=== PATIENT | male | born 1965 | race Caucasian/White ===

== ENCOUNTER 2020-10-24 10:37 | Emergency (ER) | payer OTHER, MEDICAID, SELFPAY ==
[2020-10-24 10:45] VITALS: BP 131/77; PULSE 77; RESP 16; TEMP 36.7; O2SAT 99
[2020-10-24 11:17] LABS: Add Manual Diff / Slide Review NO; Basophils Absolute Auto 0 /uL (0-100); Eosinophils Absolute Auto 100 /uL (0-450); Eosinophils Percent Auto 2.2 % (2-4); Hematocrit 38.3 % (41-53); Hemoglobin 12.5 g/dL (13.5-17.5); Lymphocytes Absolute Auto 1400 /uL (1100-4500); Lymphocytes Percent Auto 34.8 % (25-40); Mean Corpuscular HGB Conc 32.7 % (30-36); Mean Corpuscular Hemoglobin 27.8 PG (26-34); Mean Corpuscular Volume 85.1 fL (80-100); Monocytes Absolute Auto 400 /uL (0-900); Monocytes Percent Auto 8.9 % (3-14); Neutrophils Absolute Auto 2100 /uL (1500-7000); Neutrophils Percent Auto 53.1 % (50-75); Platelet Count 236 X10^3/uL (150-400)
[2020-10-24 11:24] LABS: Alanine Aminotransferase 29 IU/L (<50); Albumin 2.6 g/dL (3.5-5.0); Albumin Globulin Ratio 0.8 (1.0-2.8); Alkaline Phosphatase 119 U/L (38-126); Aspartate Aminotransferase 69 IU/L (17-59); BUN Creatinine Ratio 13.6 (6-22); Bilirubin Total 0.5 mg/dL (0.2-1.3); Blood Urea Nitrogen 8 mg/dL (9-20); Calcium 8.1 mg/dL (8.4-10.2); Carbon Dioxide 24 mmol/L (22-32); Chloride 114 mmol/L (98-107); Estimated Glomerular Filt Rate > 60.0 mL/min (>60); Globulin 3.3 g/dL (1.7-4.1); Glucose 100 mg/dL (70-100); HEMOLYSIS < 15 (0-50); Potassium 3.5 mmol/L (3.4-5.1); Sodium 144 mmol/L (137-145); Total Protein 5.9 g/dL (6.3-8.2)
--- NOTE | 2020-10-24 11:26 | ED.PSYCH ---
HPI - Psych <Nyasia Orta MD - Last Filed: 10/25/20 18:33> General Chief Complaint: Psychiatric Symptoms Stated Complaint: NICHOLAS Time Seen by Provider: 10/24/20 10:43 Source: patient Mode of arrival: Ambulatory History of Present Illness HPI Narrative: 55-year-old gentleman brought in by police with concerns for unusual behavior. He is tangential, pressured, disoriented. He is unable to focus. States that he wants to see his daughter that he lives in [place] that he lives on [address] that he wants to go back to [place] and continues to [place] in nonsensical ways. He does not appear to be responding to internal or external stimuli. He is cooperative. He does state that ?his brain is broken? he alludes to medications that he takes twice a day that are currently in his hotel room but he is unable to tell me what they are. Will work on getting some additional contact numbers and corroborating evidence to see how else we might be able to help this gentleman. In the meantime he did allow blood work and we have asked him for urine sample. 1234 pm [facility] [place], Latifa ETOH, ? wernicke's encephalopathy, cirrhosis with ascites. [facility]compliance [facility], [facility] morris, 10ish hospital stays. D/c after [place] and meds taken Will talk with staff at [facility] to see what the process to get him back to there would entail At this time, he is gravely disabled and intoxicated. [facility] call from [facility] Related Data Allergies Allergy/AdvReac Type Severity Reaction Status Date / Time No Known Drug Allergies Allergy Verified 10/24/20 10:45 Review of Systems <Nyasia Orta MD - Last Filed: 10/25/20 18:33> Review of Systems ROS Unobtainable: Unobtainable due to mental status/LOC Exam <Nyasia Orta MD - Last Filed: 10/25/20 18:33> Initial Vital Signs Initial Vital Signs: Vital Signs Temperature 98.1 F 10/24/20 10:45 Pulse Rate 77 10/24/20 10:45 Respiratory Rate 16 10/24/20 10:45 Blood Pressure 131/77 10/24/20 10:45 Pulse Oximetry 99 10/24/20 10:45 <Nic Cope DO - Last Filed: 10/25/20 05:50> Initial Vital Signs Initial Vital Signs: Vital Signs Temperature 98.1 F 10/24/20 10:45 Pulse Rate 77 10/24/20 10:45 Respiratory Rate 16 10/24/20 10:45 Blood Pressure 131/77 10/24/20 10:45 Pulse Oximetry 99 10/24/20 10:45 Course <Nyasia Orta MD - Last Filed: 10/25/20 18:33> Orders Ordered: Discontinued Medications Diphenhydramine HCl (Diphenhydramine 50 Mg/Ml Vial) 50 mg IM NOW ONE Stop: 10/24/20 11:32 Last Admin: 10/24/20 11:44 Dose: 50 mg Documented by: TEMO Haloperidol (Haloperidol 5 Mg/Ml Vial) 10 mg IM NOW ONE Stop: 10/24/20 11:32 Last Admin: 10/24/20 11:44 Dose: 5 mg Documented by: TEMO Lorazepam (Lorazepam 2 Mg/Ml Inj) 2 mg IM NOW ONE Stop: 10/24/20 11:32 Last Admin: 10/24/20 11:44 Dose: 2 mg Documented by: TEMO Thiamine HCl (Thiamine 100 Mg Tablet) 100 mg PO NOW ONE Stop: 10/24/20 13:24 Last Admin: 10/24/20 14:50 Dose: 100 mg Documented by: TEMO Vital Signs Vital signs: Vital Signs - 8 hr 10/24/20 19:03 Temperature 98.6 F Pulse Rate 82 Respiratory Rate 17 Blood Pressure 149/74 H Pulse Oximetry 96 <Nic Cope DO - Last Filed: 10/25/20 05:50> Orders Ordered: Discontinued Medications Diphenhydramine HCl (Diphenhydramine 50 Mg/Ml Vial) 50 mg IM NOW ONE Stop: 10/24/20 11:32 Last Admin: 10/24/20 11:44 Dose: 50 mg Documented by: TEMO Haloperidol (Haloperidol 5 Mg/Ml Vial) 10 mg IM NOW ONE Stop: 10/24/20 11:32 Last Admin: 10/24/20 11:44 Dose: 5 mg Documented by: TEMO Lorazepam (Lorazepam 2 Mg/Ml Inj) 2 mg IM NOW ONE Stop: 10/24/20 11:32 Last Admin: 10/24/20 11:44 Dose: 2 mg Documented by: TEMO Thiamine HCl (Thiamine 100 Mg Tablet) 100 mg PO NOW ONE Stop: 10/24/20 13:24 Last Admin: 10/24/20 14:50 Dose: 100 mg Documented by: TEMO Vital Signs Vital signs: Vital Signs - 8 hr 10/24/20 19:03 Temperature 98.6 F Pulse Rate 82 Respiratory Rate 17 Blood Pressure 149/74 H Pulse Oximetry 96 MDM - Psych <Nyasia Orta MD - Last Filed: 10/25/20 18:33> Medical Records Attestation: I reviewed the patient's medical records. Lab Data Attestation: I reviewed the patient's lab results. Result diagrams: 10/24/20 11:04 10/24/20 11:04 Labs: Lab Results 10/24/20 10/24/20 10/24/20 Range/Units 11:04 11:04 11:04 WBC 4.0 L (4.5-11.0) X10^3/uL RBC 4.50 (4.5-5.9) X10^6/uL Hgb 12.5 L (13.5-17.5) g/dL Hct 38.3 L (41-53) % MCV 85.1 (80-100) fL MCH 27.8 (26-34) PG MCHC 32.7 (30-36) % RDW 20.0 H (11.6-14.8) % Plt Count 236 (150-400) X10^3/uL Neut % (Auto) 53.1 (50-75) % Lymph % (Auto) 34.8 (25-40) % [place] % (Auto) 8.9 (3-14) % Eos % (Auto) 2.2 (2-4) % Baso % (Auto) 1.0 (0-2) % Neut # (Auto) 2100 (1518-4749) /uL Lymph # (Auto) 1400 (3949-2240) /uL [place] # (Auto) 400 (0-900) /uL Eos # (Auto) 100 (0-450) /uL Baso # (Auto) 0 (0-100) /uL Sodium 144 (137-145) mmol/L Potassium 3.5 (3.4-5.1) mmol/L Chloride 114 H (98-107) mmol/L Carbon Dioxide 24 (22-32) mmol/L BUN 8 L (9-20) mg/dL Creatinine 0.59 L (0.66-1.25) mg/dL Estimated GFR > 60.0 (>60) mL/min BUN/Creatinine Ratio 13.6 (6-22) Glucose 100 (70-100) mg/dL Calcium 8.1 L (8.4-10.2) mg/dL Total Bilirubin 0.5 (0.2-1.3) mg/dL AST 69 H (17-59) IU/L ALT 29 (<50) IU/L Alkaline Phosphatase 119 (38-126) U/L Total Protein 5.9 L (6.3-8.2) g/dL Albumin 2.6 L (3.5-5.0) g/dL Globulin 3.3 (1.7-4.1) g/dL Albumin/Globulin Ratio 0.8 L (1.0-2.8) TSH (0.47-4.68) uIU/mL Urine RBC (0-5/HPF) Urine WBC (0-5/HPF) Ur Squamous Epith Cells (0-5/HPF) Urine Bacteria (None) Hyaline Casts (None) Granular Casts (None) Urine Mucus (Negative) Ur Culture Indicated? U Opiates 300ng/mL cut (Negative) Ur Oxycodone Screen (Negative) Urine Methadone Screen (Negative) Ur Barbiturates Screen (Negative) U Tricyclic Antidepress (Negative) Ur Phencyclidine Scrn (Negative) Ur Amphetamines Screen (Negative) U Methamphetamines Scrn (Negative) Ur MDMA Scrn (Ecstasy) (Negative) U Benzodiazepines Scrn (Negative) Urine Cocaine Screen (Negative) U Marijuana (THC) Screen (Negative) Ethyl Alcohol 285 H ( - 10) mg/dL 10/24/20 10/24/20 10/24/20 Range/Units 11:04 18:00 18:00 WBC (4.5-11.0) X10^3/uL RBC (4.5-5.9) X10^6/uL Hgb (13.5-17.5) g/dL Hct (41-53) % MCV (80-100) fL MCH (26-34) PG MCHC (30-36) % RDW (11.6-14.8) % Plt Count (150-400) X10^3/uL Neut % (Auto) (50-75) % Lymph % (Auto) (25-40) % [place] % (Auto) (3-14) % Eos % (Auto) (2-4) % Baso % (Auto) (0-2) % Neut # (Auto) (4156-5658) /uL Lymph # (Auto) (1630-1237) /uL [place] # (Auto) (0-900) /uL Eos # (Auto) (0-450) /uL Baso # (Auto) (0-100) /uL Sodium (137-145) mmol/L Potassium (3.4-5.1) mmol/L Chloride (98-107) mmol/L Carbon Dioxide (22-32) mmol/L BUN (9-20) mg/dL Creatinine (0.66-1.25) mg/dL Estimated GFR (>60) mL/min BUN/Creatinine Ratio (6-22) Glucose (70-100) mg/dL Calcium (8.4-10.2) mg/dL Total Bilirubin (0.2-1.3) mg/dL AST (17-59) IU/L ALT (<50) IU/L Alkaline Phosphatase (38-126) U/L Total Protein (6.3-8.2) g/dL Albumin (3.5-5.0) g/dL Globulin (1.7-4.1) g/dL Albumin/Globulin Ratio (1.0-2.8) TSH 2.93 (0.47-4.68) uIU/mL Urine RBC 10-30/hpf H (0-5/HPF) Urine WBC 1-5/hpf (0-5/HPF) Ur Squamous Epith Cells 0-1 /hpf (0-5/HPF) Urine Bacteria Occasional (0-1) (None) Hyaline Casts 10-30/lpf (None) Granular Casts 1-5/lpf (None) Urine Mucus 2+ H (Negative) Ur Culture Indicated? Cult not indicated U Opiates 300ng/mL cut Negative (Negative) Ur Oxycodone Screen Negative (Negative) Urine Methadone Screen Negative (Negative) Ur Barbiturates Screen Negative (Negative) U Tricyclic Antidepress Negative (Negative) Ur Phencyclidine Scrn Negative (Negative) Ur Amphetamines Screen Negative (Negative) U Methamphetamines Scrn Negative (Negative) Ur MDMA Scrn (Ecstasy) Negative (Negative) U Benzodiazepines Scrn Negative (Negative) Urine Cocaine Screen Negative (Negative) U Marijuana (THC) Screen Positive H (Negative) Ethyl Alcohol ( - 10) mg/dL 10/24/20 10/24/20 Range/Units 18:22 23:51 WBC (4.5-11.0) X10^3/uL RBC (4.5-5.9) X10^6/uL Hgb (13.5-17.5) g/dL Hct (41-53) % MCV (80-100) fL MCH (26-34) PG MCHC (30-36) % RDW (11.6-14.8) % Plt Count (150-400) X10^3/uL Neut % (Auto) (50-75) % Lymph % (Auto) (25-40) % [place] % (Auto) (3-14) % Eos % (Auto) (2-4) % Baso % (Auto) (0-2) % Neut # (Auto) (1228-2008) /uL Lymph # (Auto) (5079-3680) /uL [place] # (Auto) (0-900) /uL Eos # (Auto) (0-450) /uL Baso # (Auto) (0-100) /uL Sodium (137-145) mmol/L Potassium (3.4-5.1) mmol/L Chloride (98-107) mmol/L Carbon Dioxide (22-32) mmol/L BUN (9-20) mg/dL Creatinine (0.66-1.25) mg/dL Estimated GFR (>60) mL/min BUN/Creatinine Ratio (6-22) Glucose (70-100) mg/dL Calcium (8.4-10.2) mg/dL Total Bilirubin (0.2-1.3) mg/dL AST (17-59) IU/L ALT (<50) IU/L Alkaline Phosphatase (38-126) U/L Total Protein (6.3-8.2) g/dL Albumin (3.5-5.0) g/dL Globulin (1.7-4.1) g/dL Albumin/Globulin Ratio (1.0-2.8) TSH (0.47-4.68) uIU/mL Urine RBC (0-5/HPF) Urine WBC (0-5/HPF) Ur Squamous Epith Cells (0-5/HPF) Urine Bacteria (None) Hyaline Casts (None) Granular Casts (None) Urine Mucus (Negative) Ur Culture Indicated? U Opiates 300ng/mL cut (Negative) Ur Oxycodone Screen (Negative) Urine Methadone Screen (Negative) Ur Barbiturates Screen (Negative) U Tricyclic Antidepress (Negative) Ur Phencyclidine Scrn (Negative) Ur Amphetamines Screen (Negative) U Methamphetamines Scrn (Negative) Ur MDMA Scrn (Ecstasy) (Negative) U Benzodiazepines Scrn (Negative) Urine Cocaine Screen (Negative) U Marijuana (THC) Screen (Negative) Ethyl Alcohol 168 H 53 H ( - 10) mg/dL Urine Dip Bedside Urine Glucose 250 mg/dl Bedside Urine Bilirubin + 1 Bedside Urine Ketone - Negative Urine Specific [place] 1.025 Bedside Urine Occult Blood +++ Bedside Urine pH 6 Bedside Urine Protein +++ 300 Bedside Urine Urobilinogen 1+ 2mg Bedside Urine Nitrite - Negative Bedside Urine Leukocytes - Negative Esterase MDM Narrative Medical decision making narrative: 55-year-old gentleman with alcohol use disorder, some type of additional psychiatric diagnoses to which I am not privy at this time, 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 He is currently acutely intoxicated, confused, confabulating and gravely disabled. He was agitated enough that he was given medications to sedate him including Ativan, Haldol and Benadryl. 1:54pm We were able to talk Latifa at the intense [facility] program Who connected me with Bello Reynaga, geriatric social work professor He suggested calling the psychiatric ER director of rehabilitative services at [phone], message was left Talked with Lyndon transfer nurse responsible for [facility] at [phone] direct number to [phone] Jori, presumably from the ER psychiatric director of rehabilitative services office, returned the call and left a call back number of [phone]. Message was left at that number At this time, patient remains comfortably sedated, he has had lunch and is currently taking a nap. 240pm Jori [phone] can't be transferred to ER without capacity to agree to transfer. Will fax most recent H&P, D/C and social work notes. Will need evaluation once sober and probable DCR eval at that time <Nic Cope DO - Last Filed: 10/25/20 05:50> Lab Data Labs: Lab Results 10/24/20 10/24/20 10/24/20 Range/Units 11:04 11:04 11:04 WBC 4.0 L (4.5-11.0) X10^3/uL RBC 4.50 (4.5-5.9) X10^6/uL Hgb 12.5 L (13.5-17.5) g/dL Hct 38.3 L (41-53) % MCV 85.1 (80-100) fL MCH 27.8 (26-34) PG MCHC 32.7 (30-36) % RDW 20.0 H (11.6-14.8) % Plt Count 236 (150-400) X10^3/uL Neut % (Auto) 53.1 (50-75) % Lymph % (Auto) 34.8 (25-40) % [place] % (Auto) 8.9 (3-14) % Eos % (Auto) 2.2 (2-4) % Baso % (Auto) 1.0 (0-2) % Neut # (Auto) 2100 (9726-9354) /uL Lymph # (Auto) 1400 (8208-8495) /uL [place] # (Auto) 400 (0-900) /uL Eos # (Auto) 100 (0-450) /uL Baso # (Auto) 0 (0-100) /uL Sodium 144 (137-145) mmol/L Potassium 3.5 (3.4-5.1) mmol/L Chloride 114 H (98-107) mmol/L Carbon Dioxide 24 (22-32) mmol/L BUN 8 L (9-20) mg/dL Creatinine 0.59 L (0.66-1.25) mg/dL Estimated GFR > 60.0 (>60) mL/min BUN/Creatinine Ratio 13.6 (6-22) Glucose 100 (70-100) mg/dL Calcium 8.1 L (8.4-10.2) mg/dL Total Bilirubin 0.5 (0.2-1.3) mg/dL AST 69 H (17-59) IU/L ALT 29 (<50) IU/L Alkaline Phosphatase 119 (38-126) U/L Total Protein 5.9 L (6.3-8.2) g/dL Albumin 2.6 L (3.5-5.0) g/dL Globulin 3.3 (1.7-4.1) g/dL Albumin/Globulin Ratio 0.8 L (1.0-2.8) TSH (0.47-4.68) uIU/mL Urine RBC (0-5/HPF) Urine WBC (0-5/HPF) Ur Squamous Epith Cells (0-5/HPF) Urine Bacteria (None) Hyaline Casts (None) Granular Casts (None) Urine Mucus (Negative) Ur Culture Indicated? U Opiates 300ng/mL cut (Negative) Ur Oxycodone Screen (Negative) Urine Methadone Screen (Negative) Ur Barbiturates Screen (Negative) U Tricyclic Antidepress (Negative) Ur Phencyclidine Scrn (Negative) Ur Amphetamines Screen (Negative) U Methamphetamines Scrn (Negative) Ur MDMA Scrn (Ecstasy) (Negative) U Benzodiazepines Scrn (Negative) Urine Cocaine Screen (Negative) U Marijuana (THC) Screen (Negative) Ethyl Alcohol 285 H ( - 10) mg/dL 10/24/20 10/24/20 10/24/20 Range/Units 11:04 18:00 18:00 WBC (4.5-11.0) X10^3/uL RBC (4.5-5.9) X10^6/uL Hgb (13.5-17.5) g/dL Hct (41-53) % MCV (80-100) fL MCH (26-34) PG MCHC (30-36) % RDW (11.6-14.8) % Plt Count (150-400) X10^3/uL Neut % (Auto) (50-75) % Lymph % (Auto) (25-40) % [place] % (Auto) (3-14) % Eos % (Auto) (2-4) % Baso % (Auto) (0-2) % Neut # (Auto) (3730-0913) /uL Lymph # (Auto) (5290-5734) /uL [place] # (Auto) (0-900) /uL Eos # (Auto) (0-450) /uL Baso # (Auto) (0-100) /uL Sodium (137-145) mmol/L Potassium (3.4-5.1) mmol/L Chloride (98-107) mmol/L Carbon Dioxide (22-32) mmol/L BUN (9-20) mg/dL Creatinine (0.66-1.25) mg/dL Estimated GFR (>60) mL/min BUN/Creatinine Ratio (6-22) Glucose (70-100) mg/dL Calcium (8.4-10.2) mg/dL Total Bilirubin (0.2-1.3) mg/dL AST (17-59) IU/L ALT (<50) IU/L Alkaline Phosphatase (38-126) U/L Total Protein (6.3-8.2) g/dL Albumin (3.5-5.0) g/dL Globulin (1.7-4.1) g/dL Albumin/Globulin Ratio (1.0-2.8) TSH 2.93 (0.47-4.68) uIU/mL Urine RBC 10-30/hpf H (0-5/HPF) Urine WBC 1-5/hpf (0-5/HPF) Ur Squamous Epith Cells 0-1 /hpf (0-5/HPF) Urine Bacteria Occasional (0-1) (None) Hyaline Casts 10-30/lpf (None) Granular Casts 1-5/lpf (None) Urine Mucus 2+ H (Negative) Ur Culture Indicated? Cult not indicated U Opiates 300ng/mL cut Negative (Negative) Ur Oxycodone Screen Negative (Negative) Urine Methadone Screen Negative (Negative) Ur Barbiturates Screen Negative (Negative) U Tricyclic Antidepress Negative (Negative) Ur Phencyclidine Scrn Negative (Negative) Ur Amphetamines Screen Negative (Negative) U Methamphetamines Scrn Negative (Negative) Ur MDMA Scrn (Ecstasy) Negative (Negative) U Benzodiazepines Scrn Negative (Negative) Urine Cocaine Screen Negative (Negative) U Marijuana (THC) Screen Positive H (Negative) Ethyl Alcohol ( - 10) mg/dL 10/24/20 10/24/20 Range/Units 18:22 23:51 WBC (4.5-11.0) X10^3/uL RBC (4.5-5.9) X10^6/uL Hgb (13.5-17.5) g/dL Hct (41-53) % MCV (80-100) fL MCH (26-34) PG MCHC (30-36) % RDW (11.6-14.8) % Plt Count (150-400) X10^3/uL Neut % (Auto) (50-75) % Lymph % (Auto) (25-40) % [place] % (Auto) (3-14) % Eos % (Auto) (2-4) % Baso % (Auto) (0-2) % Neut # (Auto) (8628-1799) /uL Lymph # (Auto) (3647-8998) /uL [place] # (Auto) (0-900) /uL Eos # (Auto) (0-450) /uL Baso # (Auto) (0-100) /uL Sodium (137-145) mmol/L Potassium (3.4-5.1) mmol/L Chloride (98-107) mmol/L Carbon Dioxide (22-32) mmol/L BUN (9-20) mg/dL Creatinine (0.66-1.25) mg/dL Estimated GFR (>60) mL/min BUN/Creatinine Ratio (6-22) Glucose (70-100) mg/dL Calcium (8.4-10.2) mg/dL Total Bilirubin (0.2-1.3) mg/dL AST (17-59) IU/L ALT (<50) IU/L Alkaline Phosphatase (38-126) U/L Total Protein (6.3-8.2) g/dL Albumin (3.5-5.0) g/dL Globulin (1.7-4.1) g/dL Albumin/Globulin Ratio (1.0-2.8) TSH (0.47-4.68) uIU/mL Urine RBC (0-5/HPF) Urine WBC (0-5/HPF) Ur Squamous Epith Cells (0-5/HPF) Urine Bacteria (None) Hyaline Casts (None) Granular Casts (None) Urine Mucus (Negative) Ur Culture Indicated? U Opiates 300ng/mL cut (Negative) Ur Oxycodone Screen (Negative) Urine Methadone Screen (Negative) Ur Barbiturates Screen (Negative) U Tricyclic Antidepress (Negative) Ur Phencyclidine Scrn (Negative) Ur Amphetamines Screen (Negative) U Methamphetamines Scrn (Negative) Ur MDMA Scrn (Ecstasy) (Negative) U Benzodiazepines Scrn (Negative) Urine Cocaine Screen (Negative) U Marijuana (THC) Screen (Negative) Ethyl Alcohol 168 H 53 H ( - 10) mg/dL Urine Dip Bedside Urine Glucose 250 mg/dl Bedside Urine Bilirubin + 1 Bedside Urine Ketone - Negative Urine Specific [place] 1.025 Bedside Urine Occult Blood +++ Bedside Urine pH 6 Bedside Urine Protein +++ 300 Bedside Urine Urobilinogen 1+ 2mg Bedside Urine Nitrite - Negative Bedside Urine Leukocytes - Negative Esterase MDM Narrative Medical decision making narrative: Dr cope: 10/25/20 @0045: Reviewed patient's history and physical and labs. Repeat alcohol level shows that he is below legal limit. I went to evaluate the patient. Patient states that he is not suicidal. He did admit to drinking too much alcohol last evening. He knows the year. He knows the month. Initially he thought that he was in [place] but when I redirected him stating that he is in [place] he states ?oh yea, I was going through [place] he states that he feels falling. He states that he would like to go home. There are no Taxi's running currently. He states that he does have a place to go however he will stay in the emergency department for this evening and we will re-evaluate again in the morning. 0545: He has remained calm all evening and sleeping. He has no signs of alcohol withdrawal. Re-evaluated him and he states that he feels fine. He states that he has not any pain. He continues to state that he is not suicidal. He would like to go home. I asked if there was anything more that we can do for him and he said no. He is going to go from here back home. He states he can pay for taxi. Patient is no longer intoxicated. He is alert and oriented to person and place. He has a nonfocal neurologic exam. In my opinion has capacity to make decisions. Discharge Plan Departure Patient Disposition: Home Clinical Impression: Alcohol intoxication Instructions: Alcohol Use Disorder Activity Restrictions/Additional Instructions: I recommend that you contact your primary provider for follow-up. No driving if you decide to drink alcohol in the future. Return to the emergency department for any new or worsening symptoms
--- NOTE | 2020-10-24 11:40 | PC.NURSE ---
Pt is requesting medications to help calm him down. MD ordering meds
[2020-10-24] MEDS: LORazepam 2 MG/ML INJ IM (11:44)
[2020-10-24] MEDS: HALOPERIDOL 5 MG/ML VIAL 10 MG IM (11:44)
[2020-10-24] MEDS: diphenhydrAMINE 50 MG/ML VIAL IM (11:44)
[2020-10-24 12:09] LABS: Thyroid Stimulating Hormone 2.93 uIU/mL (0.47-4.68)
[2020-10-24 12:21] LABS: Ethanol (ETOH) 285 mg/dL
--- NOTE | 2020-10-24 12:47 | PC.NURSE ---
This BEATER LEAD, with help from RN, changed patient into more comfortable bed and soft scrubs.
[2020-10-24 13:30] VITALS: BP 118/74; PULSE 85; RESP 16; TEMP 36.7; O2SAT 97
[2020-10-24] MEDS: THIAMINE 100 MG TABLET PO (14:50)
[2020-10-24 18:19] LABS: UR Morphine/Opiate cutoff 300 Negative (Negative); Ur Creatinine Normal (Normal); Ur Specific Gravity Normal (Normal); Urine Amphetamines Negative (Negative); Urine Barbiturates Negative (Negative); Urine Benzodiazepines Negative (Negative); Urine Cocaine Negative (Negative); Urine MDMA Negative (Negative); Urine Methadone Negative (Negative); Urine Methamphetamines Negative (Negative); Urine Oxycodone Negative (Negative); Urine Phencyclidine Negative (Negative); Urine Tetrahydrocannabinol Positive (Negative); Urine Tricyclic Antidepressant Negative (Negative); Urine pH Normal (Normal)
[2020-10-24 18:27] LABS: Granular Casts Urine 1-5/LPF; Hyaline Casts Urine 10-30/LPF; Mucus Urine 2+ (Negative); RBC Urine 10-30/HPF (0-5/HPF); WBC Urine 1-5/HPF (0-5/HPF)
[2020-10-24 18:28] LABS: Bacteria Urine Occasional (0-1); Culture Indicated Urine Cult Not Indicated; Squamous Epithelial Cell Urine 0-1 /HPF (0-5/HPF)
[2020-10-24 18:36] LABS: Ethanol (ETOH) 168 mg/dL
[2020-10-24 19:03] VITALS: BP 149/74; PULSE 82; RESP 17; TEMP 37; O2SAT 96
[2020-10-25 00:21] LABS: Ethanol (ETOH) 53 mg/dL
--- NOTE | 2020-10-25 00:43 | PC.NURSE ---
Provider into room to re-evaluate patient after alcohol level decreased. Provider states patient is safe to go home. Waiting for the taxi to start running in the morning. Provider has cleared patient from 15 min safety checks
[2020-10-25 05:54] VITALS: BP 162/93; PULSE 18; RESP 18; O2SAT 98
== END 2020-10-25 06:10 | disposition home or self-care (01) ==
PROVIDERS: Emergency Medicine; Emergency Provider Emergency Medicine
DX: F10.129 Alcohol abuse with intoxication, unspecified (principal); R41.0 Disorientation, unspecified; Y90.8 Blood alcohol level of 240 mg/100 ml or more
CPT/HCPCS: 36415; 80053; 80305; 80320; 81003; 81015; 84443; 85025; 96372; 99284; J1200; J1630; J2060

== ENCOUNTER 2020-10-28 14:15 | Emergency (ER) | payer OTHER, MEDICAID, SELFPAY ==
[2020-10-28 14:16] VITALS: BP 110/56; PULSE 73; RESP 14; TEMP 36.4; O2SAT 95
--- NOTE | 2020-10-28 14:51 | PC.NURSE ---
patient is alert but disoriented to place, time, and situation. He is responsive and willing to comply with requests
[2020-10-28 15:25] LABS: Add Manual Diff / Slide Review NO; Basophils Absolute Auto 100 /uL (0-100); Basophils Percent Auto 1.2 % (0-2); Eosinophils Absolute Auto 0 /uL (0-450); Eosinophils Percent Auto 1.1 % (2-4); Hematocrit 39.9 % (41-53); Hemoglobin 12.7 g/dL (13.5-17.5); Lymphocytes Absolute Auto 900 /uL (1100-4500); Lymphocytes Percent Auto 21.9 % (25-40); Mean Corpuscular HGB Conc 31.8 % (30-36); Mean Corpuscular Hemoglobin 27.3 PG (26-34); Mean Corpuscular Volume 85.9 fL (80-100); Monocytes Absolute Auto 300 /uL (0-900); Monocytes Percent Auto 7.4 % (3-14); Neutrophils Absolute Auto 2900 /uL (1500-7000); Neutrophils Percent Auto 68.4 % (50-75); Platelet Count 146 X10^3/uL (150-400); Red Blood Cell Count 4.64 X10^6/uL (4.5-5.9); White Blood Cell Count 4.3 X10^3/uL (4.5-11.0)
[2020-10-28 15:33] LABS: Alanine Aminotransferase 28 IU/L (<50); Albumin 2.4 g/dL (3.5-5.0); Albumin Globulin Ratio 0.8 (1.0-2.8); Alkaline Phosphatase 110 U/L (38-126); Aspartate Aminotransferase 76 IU/L (17-59); BUN Creatinine Ratio 27.1 (6-22); Bilirubin Total 0.7 mg/dL (0.2-1.3); Blood Urea Nitrogen 13 mg/dL (9-20); Calcium 7.6 mg/dL (8.4-10.2); Carbon Dioxide 27 mmol/L (22-32); Chloride 112 mmol/L (98-107); Estimated Glomerular Filt Rate > 60.0 mL/min (>60); Globulin 3.2 g/dL (1.7-4.1); Glucose 94 mg/dL (70-100); HEMOLYSIS 21 (0-50); Potassium 4.1 mmol/L (3.4-5.1); Sodium 143 mmol/L (137-145); Total Protein 5.6 g/dL (6.3-8.2)
[2020-10-28 15:41] LABS: Ethanol (ETOH) 394 mg/dL
[2020-10-28] MEDS: LORazepam 2 MG/ML INJ 1 MG IV ×2 (16:18→17:02)
--- NOTE | 2020-10-28 16:26 | ED_ITS ---
HPI - Alcohol <Tyler GarciaALEJANDRO OquendoP - Last Filed: 10/28/20 20:38> General Chief Complaint: Toxicology Problem Stated Complaint: ETOH Time Seen by Provider: 10/28/20 15:14 Source: EMS Mode of arrival: EMS Limitations: altered mental status History of Present Illness HPI narrative: This is 55 year old male brought in by EMS with c/o patient [facility] and dispatched EMS. When EMS arrived, he was awake and behaving as intoxicated. Patient was in ED 4days ago with altered mental status when found by [employer] and had extensive worked up done at that time. Patient denies any chest pain, breathing difficulty, abdominal pain, hallucinations, homicidal or suicidal thoughts and states I just wanna go sleep yelling and not able to carry conversation and just repeats same answers stating his name. Unable to obtain meaningful medical related information or chief come or what the patient's needs are. Patient denies taking street drugs, drinking alcohol. According to EMR, he was DC from [facility] psych 1.5 week with ? wernicke's encephalopathy, cirrhosis with ascites, ETOH dependence. noncompliance with his current therapy. Dr. Orta made attempts to contact [place] [facility] and spoke with social human services assistants and also spoke with [facility] computer programmer analyst. When he became sober, he was discharged from ED stating patient is not suicidal or homicidal and was able to make medical decision. Related Data Allergies Allergy/AdvReac Type Severity Reaction Status Date / Time No Known Drug Allergies Allergy Verified 10/28/20 14:20 Review of Systems <Tyler GarciaYolyIDANIA Gambino - Last Filed: 10/28/20 20:38> Review of Systems ROS Unobtainable: Unobtainable due to mental status/LOC Exam <Tyler GarciaYolyALEJANDRO GambinoP - Last Filed: 10/28/20 20:38> Narrative Exam Narrative: General appearance: Thin-appearing, in no acute distress. Head: normocephalic, atraumatic, no scalp lesions, non-tender. ENT: Hearing grossly intact. Airway patent. Neck/Thyroid: neck supple, full range of motion, no visible masses or meningeal signs. No JVD, non-tender without lymphadenopathy. Skin: no suspicious rashes, lesions over visible areas. Warm and dry and appropriate color for ethnicity. Heart: no clubbing, no cyanosis, no edema. S1 and S2 normal. RRR w/o murmurs, clicks, or bruits. Lungs: Breathing even and unlabored. No stridor. No accessory muscles used. Able to speak in full sentences. Chest: normal shape and expansion. Abdomen: non-obese, non-distended. Neurologic: alert and oriented to self only. Speech clear but has difficult time with word findings. Psych: Yelling, apprehensive, difficulty with redirecting. Initial Vital Signs Initial Vital Signs: Vital Signs Temperature 97.5 F L 10/28/20 14:16 Pulse Rate 73 10/28/20 14:16 Respiratory Rate 14 10/28/20 14:16 Blood Pressure 110/56 L 10/28/20 14:16 Pulse Oximetry 95 10/28/20 14:16 Psych Appearance: disheveled Speech and Movement: pressured speech Mood: anxious mood and irritable mood Attitude: belligerent Thought Process: flight of ideas and loose association Thought Content: no hallucinations and no homicidality Judgment: poor <Carlos Loza DO - Last Filed: 10/29/20 01:03> Initial Vital Signs Initial Vital Signs: Vital Signs Temperature 97.5 F L 10/28/20 14:16 Pulse Rate 73 10/28/20 14:16 Respiratory Rate 14 10/28/20 14:16 Blood Pressure 110/56 L 10/28/20 14:16 Pulse Oximetry 95 10/28/20 14:16 Scores <IDANIA Pathak - Last Filed: 10/28/20 20:38> GCS Marko coma scale eye opening: Spontaneous [place] coma scale verbal response: Confused Marko coma scale motor response: Obey commands Marko coma scale total score: 14 Course <IDANIA Pathak Last Filed: 10/28/20 20:38> Orders Ordered: ED Orders 10/28/20 18:55 Urine Drug Screen, Rapid Stat Urine Microscopic Stat 10/28/20 20:18 CT head/brain wo con Stat Discontinued Medications Magnesium Sulfate 2 gm/ Folic Acid 1 mg/ Thiamine HCl 100 mg / Multivitamins 10 ml/ Sodium Chloride 1,015.2 mls @ 125 mls/hr IV NOW ONE Stop: 10/29/20 00:06 Last Infusion: 10/28/20 18:04 Dose: 0 mls/hr Documented by: Infusion: 10/28/20 17:36 Dose: 125 mls/hr Documented by: Infusion: 10/28/20 17:10 Dose: 0 mls/hr Documented by: Admin: 10/28/20 16:34 Dose: 125 mls/hr Documented by: BERNARDO Lorazepam (Lorazepam 2 Mg/Ml Inj) 1 mg IV NOW ONE Stop: 10/28/20 16:00 Last Admin: 10/28/20 16:18 Dose: 1 mg Documented by: BERNARDO Lorazepam (Lorazepam 2 Mg/Ml Inj) 1 mg IV NOW ONE Stop: 10/28/20 16:55 Last Admin: 10/28/20 17:02 Dose: 1 mg Documented by: BERNARDO Reevaluation(s) Reevaluation #1: Patient becomes more agitated, screaming stating I don't know what's going on, Don't know what to do and I don't know why and difficulty with redirection. In tears and stating need something to calm himself Time: 16:00 Reevaluation #2: Patient slightly calmer but still making non-sensical conversation and difficulty with redirection. Requsting something to calm himself down. Time: 16:53 Reevaluation #3: Patient pulled his IV, standing next to bed. Speech clear but has difficulty with word findings. Informed the patient, unable to discharge patient at this time due to safety issues/unsure where to dc and intoxicated Time: 18:00 Additional Reevaluation(s): Finally patient was able to provide urine sample for UDS and POC. UDS negative. POC no indications for infection but blood. Finally patient is sleeping soundly a few hours of Ativan. Vital Signs Vital signs: Vital Signs - 8 hr 10/28/20 21:44 Pulse Rate 54 L Respiratory Rate 14 Blood Pressure 153/93 H Pulse Oximetry 95 <Carlos Loza DO - Last Filed: 10/29/20 01:03> Course Course Narrative: patient received in sign-out from daytime provider. I have performed an independent history and physical exam. The patient is alert and oriented x3, speaking without slurring words and walking a straight line without stumbling. He demonstrates capacity to make his own decisions and is requesting discharge at this time. He states that he intends to sleep in a hotel tonight and make his way to the [place] tomorrow to get to family's home on [address]. I asked him if he wished to stay overnight for help with his alcohol and he stated no. Patient understands return precautions and that he may return for any worsening, persistent, or bothersome symptoms Orders Ordered: ED Orders 10/28/20 18:55 Urine Drug Screen, Rapid Stat Urine Microscopic Stat 10/28/20 20:18 CT head/brain wo con Stat Discontinued Medications Magnesium Sulfate 2 gm/ Folic Acid 1 mg/ Thiamine HCl 100 mg / Multivitamins 10 ml/ Sodium Chloride 1,015.2 mls @ 125 mls/hr IV NOW ONE Stop: 10/29/20 00:06 Last Infusion: 10/28/20 18:04 Dose: 0 mls/hr Documented by: Infusion: 10/28/20 17:36 Dose: 125 mls/hr Documented by: Infusion: 10/28/20 17:10 Dose: 0 mls/hr Documented by: Admin: 10/28/20 16:34 Dose: 125 mls/hr Documented by: BERNARDO Lorazepam (Lorazepam 2 Mg/Ml Inj) 1 mg IV NOW ONE Stop: 10/28/20 16:00 Last Admin: 10/28/20 16:18 Dose: 1 mg Documented by: BERNARDO Lorazepam (Lorazepam 2 Mg/Ml Inj) 1 mg IV NOW ONE Stop: 10/28/20 16:55 Last Admin: 10/28/20 17:02 Dose: 1 mg Documented by: BERNARDO Vital Signs Vital signs: Vital Signs - 8 hr 10/28/20 21:44 Pulse Rate 54 L Respiratory Rate 14 Blood Pressure 153/93 H Pulse Oximetry 95 MDM - Alcohol <IDANIA Pathak - Last Filed: 10/28/20 20:38> Differential Diagnosis Differential diagnosis: Likely alcohol intoxication and other (wernicke's aph vega ) Medical Records Attestation: I reviewed the patient's medical records. Lab Data Attestation: I reviewed the patient's lab results. Result diagrams: 10/28/20 15:15 10/28/20 15:15 Labs: Lab Results 10/28/20 10/28/20 10/28/20 Range/Units 15:15 15:15 15:15 WBC 4.3 L (4.5-11.0) X10^3/uL RBC 4.64 (4.5-5.9) X10^6/uL Hgb 12.7 L (13.5-17.5) g/dL Hct 39.9 L (41-53) % MCV 85.9 (80-100) fL MCH 27.3 (26-34) PG MCHC 31.8 (30-36) % RDW 20.0 H (11.6-14.8) % Plt Count 146 L (150-400) X10^3/uL Neut % (Auto) 68.4 (50-75) % Lymph % (Auto) 21.9 L (25-40) % [place] % (Auto) 7.4 (3-14) % Eos % (Auto) 1.1 L (2-4) % Baso % (Auto) 1.2 (0-2) % Neut # (Auto) 2900 (1425-2388) /uL Lymph # (Auto) 900 L (9903-4576) /uL [place] # (Auto) 300 (0-900) /uL Eos # (Auto) 0 (0-450) /uL Baso # (Auto) 100 (0-100) /uL Sodium 143 (137-145) mmol/L Potassium 4.1 (3.4-5.1) mmol/L Chloride 112 H (98-107) mmol/L Carbon Dioxide 27 (22-32) mmol/L BUN 13 (9-20) mg/dL Creatinine 0.48 L (0.66-1.25) mg/dL Estimated GFR > 60.0 (>60) mL/min BUN/Creatinine Ratio 27.1 H (6-22) Glucose 94 (70-100) mg/dL Calcium 7.6 L (8.4-10.2) mg/dL Total Bilirubin 0.7 (0.2-1.3) mg/dL AST 76 H (17-59) IU/L ALT 28 (<50) IU/L Alkaline Phosphatase 110 (38-126) U/L Total Protein 5.6 L (6.3-8.2) g/dL Albumin 2.4 L (3.5-5.0) g/dL Globulin 3.2 (1.7-4.1) g/dL Albumin/Globulin Ratio 0.8 L (1.0-2.8) Urine RBC (0-5/HPF) Urine WBC (0-5/HPF) Amorphous Sediment Urine Bacteria (None) Ur Culture Indicated? U Opiates 300ng/mL cut (Negative) Ur Oxycodone Screen (Negative) Urine Methadone Screen (Negative) Ur Barbiturates Screen (Negative) U Tricyclic Antidepress (Negative) Ur Phencyclidine Scrn (Negative) Ur Amphetamines Screen (Negative) U Methamphetamines Scrn (Negative) Ur MDMA Scrn (Ecstasy) (Negative) U Benzodiazepines Scrn (Negative) Urine Cocaine Screen (Negative) U Marijuana (THC) Screen (Negative) Ethyl Alcohol 394 H ( - 10) mg/dL 10/28/20 10/28/20 Range/Units 18:55 18:55 WBC (4.5-11.0) X10^3/uL RBC (4.5-5.9) X10^6/uL Hgb (13.5-17.5) g/dL Hct (41-53) % MCV (80-100) fL MCH (26-34) PG MCHC (30-36) % RDW (11.6-14.8) % Plt Count (150-400) X10^3/uL Neut % (Auto) (50-75) % Lymph % (Auto) (25-40) % [place] % (Auto) (3-14) % Eos % (Auto) (2-4) % Baso % (Auto) (0-2) % Neut # (Auto) (7160-3266) /uL Lymph # (Auto) (1426-7584) /uL [place] # (Auto) (0-900) /uL Eos # (Auto) (0-450) /uL Baso # (Auto) (0-100) /uL Sodium (137-145) mmol/L Potassium (3.4-5.1) mmol/L Chloride (98-107) mmol/L Carbon Dioxide (22-32) mmol/L BUN (9-20) mg/dL Creatinine (0.66-1.25) mg/dL Estimated GFR (>60) mL/min BUN/Creatinine Ratio (6-22) Glucose (70-100) mg/dL Calcium (8.4-10.2) mg/dL Total Bilirubin (0.2-1.3) mg/dL AST (17-59) IU/L ALT (<50) IU/L Alkaline Phosphatase (38-126) U/L Total Protein (6.3-8.2) g/dL Albumin (3.5-5.0) g/dL Globulin (1.7-4.1) g/dL Albumin/Globulin Ratio (1.0-2.8) Urine RBC 10-30/hpf H (0-5/HPF) Urine WBC None seen (0-5/HPF) Amorphous Sediment 2+ Urine Bacteria None seen (None) Ur Culture Indicated? Cult not indicated U Opiates 300ng/mL cut Negative (Negative) Ur Oxycodone Screen Negative (Negative) Urine Methadone Screen Negative (Negative) Ur Barbiturates Screen Negative (Negative) U Tricyclic Antidepress Negative (Negative) Ur Phencyclidine Scrn Negative (Negative) Ur Amphetamines Screen Negative (Negative) U Methamphetamines Scrn Negative (Negative) Ur MDMA Scrn (Ecstasy) Negative (Negative) U Benzodiazepines Scrn Negative (Negative) Urine Cocaine Screen Negative (Negative) U Marijuana (THC) Screen Negative (Negative) Ethyl Alcohol ( - 10) mg/dL Urine Dip Bedside Urine Glucose Negative Bedside Urine Bilirubin - Negative Bedside Urine Ketone - Negative Urine Specific [place] 1.020 Bedside Urine Occult Blood +++ Bedside Urine pH 6.0 Bedside Urine Protein +++ 300 Bedside Urine Urobilinogen - Negative Bedside Urine Nitrite - Negative Bedside Urine Leukocytes - Negative Esterase MDM Narrative Medical decision making narrative: This is a 55 year old male who presents to ED by EMS when he was found unconscious at [facility]. Unable to to obtain meaningful history due to patient unable to answers to questions appropriately. He was here 4 days ago and received extensive workup done and was discharged from ED when he became sober. No obvious signs of trauma noted during exam. Speech is clear but difficulty with finding words and expressive aphasia. No other stroke symptoms. CBC without leukocytosis. Mild anemia of H&H 12.7/39.9 which is similar to 4 days ago. Chemistry unremarkable. Normal Cr, eGFR but elevated Cr/BUN ratio of 27.1. Mildly elevated LFT of AST 76, normal ALT and alk phosphotase. Patient is likely malnutrition with low total protein and albumin. 4 days ago TSH normal 2.93. Negative UDS. Urine test positive for 3+ occult blood and protein and no indications for infection. Patient received Ativan 1 mg total 2 mg IV when he was agitated. It was difficulty with redirection. Patient received IV banana bag small dose until he removed IV access. Patient is now resting well a couple of hours IV Ativan 2nd dose administered. Plan social work consult and reassess the patient when he is sober. Patient signed out to Dr. Loza for night attending in ED. <Carlos Loza, DO - Last Filed: 10/29/20 01:03> Lab Data Labs: Lab Results 10/28/20 10/28/20 10/28/20 Range/Units 15:15 15:15 15:15 WBC 4.3 L (4.5-11.0) X10^3/uL RBC 4.64 (4.5-5.9) X10^6/uL Hgb 12.7 L (13.5-17.5) g/dL Hct 39.9 L (41-53) % MCV 85.9 (80-100) fL MCH 27.3 (26-34) PG MCHC 31.8 (30-36) % RDW 20.0 H (11.6-14.8) % Plt Count 146 L (150-400) X10^3/uL Neut % (Auto) 68.4 (50-75) % Lymph % (Auto) 21.9 L (25-40) % [place] % (Auto) 7.4 (3-14) % Eos % (Auto) 1.1 L (2-4) % Baso % (Auto) 1.2 (0-2) % Neut # (Auto) 2900 (7517-6222) /uL Lymph # (Auto) 900 L (3609-9598) /uL [place] # (Auto) 300 (0-900) /uL Eos # (Auto) 0 (0-450) /uL Baso # (Auto) 100 (0-100) /uL Sodium 143 (137-145) mmol/L Potassium 4.1 (3.4-5.1) mmol/L Chloride 112 H (98-107) mmol/L Carbon Dioxide 27 (22-32) mmol/L BUN 13 (9-20) mg/dL Creatinine 0.48 L (0.66-1.25) mg/dL Estimated GFR > 60.0 (>60) mL/min BUN/Creatinine Ratio 27.1 H (6-22) Glucose 94 (70-100) mg/dL Calcium 7.6 L (8.4-10.2) mg/dL Total Bilirubin 0.7 (0.2-1.3) mg/dL AST 76 H (17-59) IU/L ALT 28 (<50) IU/L Alkaline Phosphatase 110 (38-126) U/L Total Protein 5.6 L (6.3-8.2) g/dL Albumin 2.4 L (3.5-5.0) g/dL Globulin 3.2 (1.7-4.1) g/dL Albumin/Globulin Ratio 0.8 L (1.0-2.8) Urine RBC (0-5/HPF) Urine WBC (0-5/HPF) Amorphous Sediment Urine Bacteria (None) Ur Culture Indicated? U Opiates 300ng/mL cut (Negative) Ur Oxycodone Screen (Negative) Urine Methadone Screen (Negative) Ur Barbiturates Screen (Negative) U Tricyclic Antidepress (Negative) Ur Phencyclidine Scrn (Negative) Ur Amphetamines Screen (Negative) U Methamphetamines Scrn (Negative) Ur MDMA Scrn (Ecstasy) (Negative) U Benzodiazepines Scrn (Negative) Urine Cocaine Screen (Negative) U Marijuana (THC) Screen (Negative) Ethyl Alcohol 394 H ( - 10) mg/dL 10/28/20 10/28/20 Range/Units 18:55 18:55 WBC (4.5-11.0) X10^3/uL RBC (4.5-5.9) X10^6/uL Hgb (13.5-17.5) g/dL Hct (41-53) % MCV (80-100) fL MCH (26-34) PG MCHC (30-36) % RDW (11.6-14.8) % Plt Count (150-400) X10^3/uL Neut % (Auto) (50-75) % Lymph % (Auto) (25-40) % [place] % (Auto) (3-14) % Eos % (Auto) (2-4) % Baso % (Auto) (0-2) % Neut # (Auto) (4238-6633) /uL Lymph # (Auto) (5359-7599) /uL [place] # (Auto) (0-900) /uL Eos # (Auto) (0-450) /uL Baso # (Auto) (0-100) /uL Sodium (137-145) mmol/L Potassium (3.4-5.1) mmol/L Chloride (98-107) mmol/L Carbon Dioxide (22-32) mmol/L BUN (9-20) mg/dL Creatinine (0.66-1.25) mg/dL Estimated GFR (>60) mL/min BUN/Creatinine Ratio (6-22) Glucose (70-100) mg/dL Calcium (8.4-10.2) mg/dL Total Bilirubin (0.2-1.3) mg/dL AST (17-59) IU/L ALT (<50) IU/L Alkaline Phosphatase (38-126) U/L Total Protein (6.3-8.2) g/dL Albumin (3.5-5.0) g/dL Globulin (1.7-4.1) g/dL Albumin/Globulin Ratio (1.0-2.8) Urine RBC 10-30/hpf H (0-5/HPF) Urine WBC None seen (0-5/HPF) Amorphous Sediment 2+ Urine Bacteria None seen (None) Ur Culture Indicated? Cult not indicated U Opiates 300ng/mL cut Negative (Negative) Ur Oxycodone Screen Negative (Negative) Urine Methadone Screen Negative (Negative) Ur Barbiturates Screen Negative (Negative) U Tricyclic Antidepress Negative (Negative) Ur Phencyclidine Scrn Negative (Negative) Ur Amphetamines Screen Negative (Negative) U Methamphetamines Scrn Negative (Negative) Ur MDMA Scrn (Ecstasy) Negative (Negative) U Benzodiazepines Scrn Negative (Negative) Urine Cocaine Screen Negative (Negative) U Marijuana (THC) Screen Negative (Negative) Ethyl Alcohol ( - 10) mg/dL Urine Dip Bedside Urine Glucose Negative Bedside Urine Bilirubin - Negative Bedside Urine Ketone - Negative Urine Specific [place] 1.020 Bedside Urine Occult Blood +++ Bedside Urine pH 6.0 Bedside Urine Protein +++ 300 Bedside Urine Urobilinogen - Negative Bedside Urine Nitrite - Negative Bedside Urine Leukocytes - Negative Esterase Imaging Data CT scan - head: Radiologist's Impressoin: Norm Ag 55 M 1965 [address] [id number] Scan ReportSigned Patient: Norm AgMR#: [id number]: 1965Acct:[id number]/Sex: 55 / MDate of Service: 10/28/20Loc: EDAccession Number: [id number] Procedure: CT head/brain wo con Ordering Provider: Carlos Loza D.O. PROCEDURE: CT HEAD/BRAIN WO CON INDICATIONS: altered, chronic alchol TECHNIQUE: Noncontrast 4.5 mm thick angled axial sections acquired from the foramen magnum to the vertex, with coronal and sagittal reformats. For radiation dose reduction, the following was used: automated exposure control, adjustment of mA and/or kV according to patient size. COMPARISON: None. FINDINGS: Image quality: Excellent. CSF spaces: Basal cisterns are patent. No extra-axial fluid collections. The ventricles are symmetric in size and shape. Brain: No intracranial bleeds or masses. Age-indeterminate subcentimeter right subinsular hypodensity. There is cerebral volume loss for age, with resultant ventricular and sulcal prominence. There are periventricular and deep white matter chronic small vessel ischemic changes. There is intracranial internal carotid artery atherosclerosis. Skull and face: Calvarium and visualized facial bones appear intact, without suspicious lesions. Sinuses: Mild right maxillary sinus mucosal thickening. Mastoid air cells appear clear. IMPRESSION: No acute intracranial process. Dictated by: Simone Dominguez M.D. on 10/28/2020 at 21:30 Approved by: Simone Dominguez M.D. on 10/28/2020 at 21:33 Discharge Plan Departure Patient Disposition: Home Clinical Impression: Alcohol use disorder Activity Restrictions/Additional Instructions: *You have been diagnosed with [alcohol intoxication] *What to do: * continue to Take medications as directed *Follow up with your primary care provider in 2-3 days, call for an appointment. Let them know you were seen in the Emergency Department and that we ask that you be seen in follow up *Return to ER if you should have any new, worsening or concerning symptoms Referrals: Alcohol [facility] [Outside] [facility] [Outside] Alcohol [facility] [Outside] Alcohol [facility] [Outside] Alcohol [facility] [Outside]
[2020-10-28] MEDS: MAGNESIUM SULFATE 2 GM, FOLIC ACID 1 MG, THIAMINE 100 MG, MULTIVITAMIN 10 ML in SODIUM ... IV (16:34)
[2020-10-28 19:02] LABS: Bacteria Urine None Seen; WBC Urine None Seen (0-5/HPF)
[2020-10-28 19:08] LABS: UR Morphine/Opiate cutoff 300 Negative (Negative); Ur Creatinine Normal (Normal); Ur Specific Gravity Normal (Normal); Urine Amphetamines Negative (Negative); Urine Barbiturates Negative (Negative); Urine Benzodiazepines Negative (Negative); Urine Cocaine Negative (Negative); Urine MDMA Negative (Negative); Urine Methadone Negative (Negative); Urine Methamphetamines Negative (Negative); Urine Oxycodone Negative (Negative); Urine Phencyclidine Negative (Negative); Urine Tetrahydrocannabinol Negative (Negative); Urine Tricyclic Antidepressant Negative (Negative); Urine pH Normal (Normal)
[2020-10-28 19:12] LABS: Amorphous Sediment Urine 2+; Culture Indicated Urine Cult Not Indicated; RBC Urine 10-30/HPF (0-5/HPF)
--- NOTE | 2020-10-28 20:18 | DI.CT.S_ITS ---
PROCEDURE: CT HEAD/BRAIN WO CON INDICATIONS: altered, chronic alchol TECHNIQUE: Noncontrast 4.5 mm thick angled axial sections acquired from the foramen magnum to the vertex, with coronal and sagittal reformats. For radiation dose reduction, the following was used: automated exposure control, adjustment of mA and/or kV according to patient size. COMPARISON: None. FINDINGS: Image quality: Excellent. CSF spaces: Basal cisterns are patent. No extra-axial fluid collections. The ventricles are symmetric in size and shape. Brain: No intracranial bleeds or masses. Age-indeterminate subcentimeter right subinsular hypodensity. There is cerebral volume loss for age, with resultant ventricular and sulcal prominence. There are periventricular and deep white matter chronic small vessel ischemic changes. There is intracranial internal carotid artery atherosclerosis. Skull and face: Calvarium and visualized facial bones appear intact, without suspicious lesions. Sinuses: Mild right maxillary sinus mucosal thickening. Mastoid air cells appear clear. IMPRESSION: No acute intracranial process. Dictated by: Simone Dominguez M.D. on 10/28/2020 at 21:30 Approved by: Simone Dominguez M.D. on 10/28/2020 at 21:33
[2020-10-28 21:44] VITALS: BP 153/93; PULSE 54; RESP 14; O2SAT 95
== END 2020-10-28 21:48 | disposition home or self-care (01) ==
PROVIDERS: Emergency Medicine; Nurse Practitioner Family; Emergency Provider Emergency Medicine
DX: F10.129 Alcohol abuse with intoxication, unspecified (principal)
CPT/HCPCS: 36415; 70450; 80053; 80305; 80320; 81003; 81015; 85025; 96361; 96374; 96376; 99284; J2060; J3475

== ENCOUNTER 2023-03-18 11:45 | Emergency (ER) | payer OTHER, MEDICAID, SELFPAY ==
[2023-03-18] VITALS (13 sets, daily range): BP systolic 72–142; BP diastolic 50–92; PULSE 56–106; RESP 17–20; TEMP 36.9; O2SAT 94–100
--- NOTE | 2023-03-18 12:09 | DI.RAD.S_ITS ---
PROCEDURE: XR CHEST 1V INDICATIONS: chest pain TECHNIQUE: One view of the chest was acquired. COMPARISON: None. FINDINGS: Surgical changes and devices: None. Lungs and pleura: Small right pleural effusion versus chronic pleural thickening. Probable right costophrenic angle region pleural calcifications. Patchy right basilar atelectasis versus scarring. Mediastinum: Mediastinal contours appear normal. Heart size is normal. Bones and chest wall: No suspicious bony lesions. Overlying soft tissues appear unremarkable. IMPRESSION: A process in the base of the right hemithorax may be acute or chronic. Pleural fluid versus pleural thickening. Mild atelectasis versus scarring. Pleural calcifications, if present, are chronic. Dictated by: Deacon Gómez M.D. on 03/18/2023 at 13:08 Approved by: Deacon Gómez M.D. on 03/18/2023 at 13:09
--- NOTE | 2023-03-18 12:11 | PC.NURSE ---
pt is currently unable or unwilling to answer questions. verbal responses do to make sense. he is asking why he is here and yelling to go home to his daughter. tried explaining to patient that he has very low BP and we are wanting to check him out and he just states he knows that but what about his daughter, he wants to go home to his daughter.
[2023-03-18 12:21] LABS: Add Manual Diff / Slide Review NO; Basophils Absolute Auto 0 /uL (0-100); Basophils Percent Auto 0.4 % (0-2); Eosinophils Absolute Auto 0 /uL (0-450); Eosinophils Percent Auto 0.1 % (2-4); Hemoglobin 13.8 g/dL (13.5-17.5); Lymphocytes Absolute Auto 1200 /uL (1100-4500); Lymphocytes Percent Auto 17.9 % (25-40); Mean Corpuscular HGB Conc 33.6 % (30-36); Mean Corpuscular Hemoglobin 29.8 PG (26-34); Mean Corpuscular Volume 88.5 fL (80-100); Monocytes Absolute Auto 400 /uL (0-900); Monocytes Percent Auto 6.3 % (3-14); Neutrophils Absolute Auto 5200 /uL (1500-7000); Neutrophils Percent Auto 75.3 % (50-75); Platelet Count 302 X10^3/uL (150-400); Red Blood Cell Count 4.64 X10^6/uL (4.5-5.9); Red Cell Distribution Width 15.6 % (11.6-14.8); White Blood Cell Count 6.8 X10^3/uL (4.5-11.0)
[2023-03-18] MEDS: SODIUM CHLORIDE 0.9% 1,000 ML 1000 ML IV ×2 (12:21→17:04)
[2023-03-18 12:26] LABS: Alanine Aminotransferase 25 IU/L (<50); Albumin 3.6 g/dL (3.5-5.0); Albumin Globulin Ratio 1.3 (1.0-2.8); Alkaline Phosphatase 102 U/L (38-126); Aspartate Aminotransferase 38 IU/L (17-59); BUN Creatinine Ratio 14.3 (6-22); Bilirubin Total 0.9 mg/dL (0.2-1.3); Blood Urea Nitrogen 15 mg/dL (9-20); Calcium 8.4 mg/dL (8.4-10.2); Carbon Dioxide 17 mmol/L (22-32); Chloride 108 mmol/L (98-107); Creatine Kinase 84 U/L (55-170); Estimated Glomerular Filt Rate > 60 mL/min (>60); Globulin 2.7 g/dL (1.7-4.1); Glucose 67 mg/dL (70-100); Lipase 98 U/L (23-300); Potassium 3.7 mmol/L (3.4-5.1); Sodium 142 mmol/L (137-145); Total Protein 6.3 g/dL (6.3-8.2)
[2023-03-18 12:34] LABS: HEMOLYSIS 18 (0-50)
[2023-03-18 12:38] LABS: Troponin I 0.014 ng/mL (0.01-0.034)
[2023-03-18 12:41] LABS: Ethanol (ETOH) 333 mg/dL
[2023-03-18 12:43] LABS: Procalcitonin 0.07 ng/mL (<0.5)
--- NOTE | 2023-03-18 13:48 | PC.NURSE ---
Patient able to stand at bedside without assistance. Steady on feet. Orthostatic vitals stable Dr. Fitzpatrick aware, can DC with ride. I spoke with daughter Franca on the phone who states she will call her sister Estela to pick him up.
--- NOTE | 2023-03-18 13:51 | ED_ITS ---
HPI - Altered Mental Status General Chief Complaint: Altered Mental Status Stated Complaint: Low bp Time Seen by Provider: 03/18/23 11:56 Source: patient Mode of arrival: Ambulatory History of Present Illness HPI narrative: Patient is a 57-year-old male with history of alcohol abuse presenting today with decreasing mental status. He apparently was hotel staff tried to wake him, he seemed very altered EMS was called and he was found to be very hypotensive. He is awake and alert blood pressure is improving with IV fluids. He denies t aking any other drugs or drinking alcohol. Although he does seem intoxicated. He has no complaints moving all of his extremities, no evidence of any type of trauma Related Data Allergies Allergy/AdvReac Type Severity Reaction Status Date / Time No Known Drug Allergies Allergy Verified 10/29/20 12:22 Review of Systems Review of Systems ROS Unobtainable: All systems reviewed & are unremarkable except as noted in HPI and below Patient History Social History Smoking Status: Unknown if ever smoked Smoking Status: Unknown if ever smoked Exam Initial Vital Signs Initial Vital Signs: Vital Signs Temperature 98.5 F 03/18/23 12:00 Pulse Rate 75 03/18/23 12:00 Respiratory Rate 17 03/18/23 12:00 Blood Pressure 97/59 L 03/18/23 12:00 Pulse Oximetry 95 03/18/23 12:00 Oxygen Delivery Method Room Air 03/18/23 12:00 GENERAL: Awake alert 57-year-old male appears intoxicated HEENT: Head atraumatic,EOMI, pupils reactive, face symmetric, moist mucous membranes CARDIOVASCULAR: Regular rate and rhythm without murmurs, rubs or gallops. RESPIRATORY: Breath sounds equal bilaterally, no wheezes rales or rhonchi. ABDOMEN: Soft, nontender. Normoactive bowel sounds all 4 quadrants. No guarding or rebound. EXTREMITIES: Normal range of motion, no clubbing or edema. Neurovascularly intact NEUROLOGICAL: Alert and oriented x4 slurring of speech moving all extremities SKIN: Warm, dry, no laceration, no petechiae, no rashes or lesions. Course Orders Ordered: ED Orders 03/18/23 12:09 XR chest 1V Stat EKG-12 Lead Stat 03/18/23 12:17 Complete Blood Count AUTO DIFF Stat Comprehensive Metabolic Panel Stat ETOH [Ethanol (ETOH)] Stat Lactate (Lactic Acid) Stat Lipase Stat Procalcitonin Stat Troponin & CK Cardiac Panel Stat 03/18/23 14:32 CT head/brain wo con Stat 03/18/23 17:44 Lactate (Lactic Acid) Stat 03/18/23 18:40 Blood Culture Stat 03/18/23 18:55 Urine Drug Screen, Rapid Stat Urine Microscopic Stat Discontinued Medications Sodium Chloride (Normal Saline 0.9%) 1,000 mls @ 1,000 mls/hr IV CONT [id number] Last Infusion: 03/18/23 13:39 Dose: 0 mls/hr Documented By: Admin: 03/18/23 12:21 Dose: 1,000 mls/hr Documented By: BARRY Sodium Chloride (Normal Saline 0.9%) 1,000 mls @ 1,000 mls/hr IV BOLUS ONE Stop: 03/18/23 17:15 Last Infusion: 03/18/23 18:56 Dose: 0 mls/hr Documented By: Admin: 03/18/23 17:04 Dose: 1,000 mls/hr Documented By: LEANDRO Lorazepam (Lorazepam 2 Mg/Ml Inj) 1 mg IV NOW ONE Stop: 03/18/23 12:28 Last Admin: 03/18/23 13:39 Dose: Not Given Documented By: TOM Vital Signs Vital signs: Vital Signs - 8 hr 03/18/23 12:00 03/18/23 12:15 03/18/23 12:57 Temperature 98.5 F Pulse Rate 75 68 56 L Pulse Rate [Orthostatic Lying] Pulse Rate [Orthostatic Sitting] Pulse Rate [Orthostatic Standing] Respiratory Rate 17 Blood Pressure 97/59 L 92/53 L 107/54 L Blood Pressure [Orthostatic Lying] Blood Pressure [Orthostatic Sitting] Blood Pressure [Orthostatic Standing] Pulse Oximetry 95 95 100 Oxygen Delivery Method Room Air Room Air Room Air 03/18/23 13:52 03/18/23 15:25 03/18/23 16:02 Temperature Pulse Rate 69 85 Pulse Rate [Orthostatic Lying] 77 Pulse Rate [Orthostatic Sitting] 89 Pulse Rate [Orthostatic Standing] 90 Respiratory Rate 20 Blood Pressure 133/58 L 99/62 Blood Pressure [Orthostatic Lying] 103/68 Blood Pressure [Orthostatic Sitting] 105/56 L Blood Pressure [Orthostatic Standing] 116/92 H Pulse Oximetry 94 Oxygen Delivery Method Room Air 03/18/23 16:04 03/18/23 16:05 03/18/23 16:09 Temperature Pulse Rate 106 H 93 H Pulse Rate [Orthostatic Lying] Pulse Rate [Orthostatic Sitting] Pulse Rate [Orthostatic Standing] Respiratory Rate Blood Pressure 97/62 82/52 L 72/50 L Blood Pressure [Orthostatic Lying] Blood Pressure [Orthostatic Sitting] Blood Pressure [Orthostatic Standing] Pulse Oximetry Oxygen Delivery Method 03/18/23 17:02 03/18/23 18:00 03/18/23 18:42 Temperature Pulse Rate 75 72 Pulse Rate [Orthostatic Lying] Pulse Rate [Orthostatic Sitting] Pulse Rate [Orthostatic Standing] Respiratory Rate Blood Pressure 121/61 117/68 117/68 Blood Pressure [Orthostatic Lying] Blood Pressure [Orthostatic Sitting] Blood Pressure [Orthostatic Standing] Pulse Oximetry 94 99 Oxygen Delivery Method Room Air Room Air 03/18/23 18:52 Temperature Pulse Rate Pulse Rate [Orthostatic Lying] 78 Pulse Rate [Orthostatic Sitting] 80 Pulse Rate [Orthostatic Standing] 77 Respiratory Rate Blood Pressure Blood Pressure [Orthostatic Lying] 142/77 H Blood Pressure [Orthostatic Sitting] 128/82 Blood Pressure [Orthostatic Standing] 117/68 Pulse Oximetry Oxygen Delivery Method MDM - Altered Mental Status Lab Data 03/18/23 12:17 03/18/23 12:17 Labs: Lab Results 03/18/23 03/18/23 03/18/23 Range/Units 12:17 12:17 12:17 WBC 6.8 (4.5-11.0) X10^3/uL RBC 4.64 (4.5-5.9) X10^6/uL Hgb 13.8 (13.5-17.5) g/dL Hct 41.0 (41-53) % MCV 88.5 (80-100) fL MCH 29.8 (26-34) PG MCHC 33.6 (30-36) % RDW 15.6 H (11.6-14.8) % Plt Count 302 (150-400) X10^3/uL Neut % (Auto) 75.3 H (50-75) % Lymph % (Auto) 17.9 L (25-40) % [place] % (Auto) 6.3 (3-14) % Eos % (Auto) 0.1 L (2-4) % Baso % (Auto) 0.4 (0-2) % Neut # (Auto) 5200 (5882-5524) /uL Lymph # (Auto) 1200 (4095-0704) /uL [place] # (Auto) 400 (0-900) /uL Eos # (Auto) 0 (0-450) /uL Baso # (Auto) 0 (0-100) /uL Sodium 142 (137-145) mmol/L Potassium 3.7 (3.4-5.1) mmol/L Chloride 108 H (98-107) mmol/L Carbon Dioxide 17 L (22-32) mmol/L BUN 15 (9-20) mg/dL Creatinine 1.05 (0.66-1.25) mg/dL Estimated GFR > 60 (>60) mL/min BUN/Creatinine Ratio 14.3 (6-22) Glucose 67 L (70-100) mg/dL Lactate 5.8 H* (0.7-2.1) mmol/L Calcium 8.4 (8.4-10.2) mg/dL Total Bilirubin 0.9 (0.2-1.3) mg/dL AST 38 (17-59) IU/L ALT 25 (<50) IU/L Alkaline Phosphatase 102 (38-126) U/L Total Creatine Kinase 84 (55-170) U/L Troponin I 0.014 (0.01-0.034) ng/mL Total Protein 6.3 (6.3-8.2) g/dL Albumin 3.6 (3.5-5.0) g/dL Globulin 2.7 (1.7-4.1) g/dL Albumin/Globulin Ratio 1.3 (1.0-2.8) Lipase 98 (23-300) U/L Procalcitonin 0.07 (<0.5) ng/mL Urine RBC (0-5/HPF) Urine WBC (0-5/HPF) Ur Squamous Epith Cells (0-5/HPF) Urine Bacteria (None) Hyaline Casts (None) Urine Mucus (Negative) Ur Culture Indicated? U Opiates 300ng/mL cut (Negative) Ur Oxycodone Screen (Negative) Urine Methadone Screen (Negative) Ur Barbiturates Screen (Negative) U Tricyclic Antidepress (Negative) Ur Phencyclidine Scrn (Negative) Ur Amphetamines Screen (Negative) U Methamphetamines Scrn (Negative) Ur MDMA Scrn (Ecstasy) (Negative) U Benzodiazepines Scrn (Negative) Urine Cocaine Screen (Negative) U Marijuana (THC) Screen (Negative) Ethyl Alcohol 333 H ( - 10) mg/dL 03/18/23 03/18/23 03/18/23 Range/Units 17:44 18:55 18:55 WBC (4.5-11.0) X10^3/uL RBC (4.5-5.9) X10^6/uL Hgb (13.5-17.5) g/dL Hct (41-53) % MCV (80-100) fL MCH (26-34) PG MCHC (30-36) % RDW (11.6-14.8) % Plt Count (150-400) X10^3/uL Neut % (Auto) (50-75) % Lymph % (Auto) (25-40) % [place] % (Auto) (3-14) % Eos % (Auto) (2-4) % Baso % (Auto) (0-2) % Neut # (Auto) (4302-8291) /uL Lymph # (Auto) (1507-6822) /uL [place] # (Auto) (0-900) /uL Eos # (Auto) (0-450) /uL Baso # (Auto) (0-100) /uL Sodium (137-145) mmol/L Potassium (3.4-5.1) mmol/L Chloride (98-107) mmol/L Carbon Dioxide (22-32) mmol/L BUN (9-20) mg/dL Creatinine (0.66-1.25) mg/dL Estimated GFR (>60) mL/min BUN/Creatinine Ratio (6-22) Glucose (70-100) mg/dL Lactate 3.5 H (0.7-2.1) mmol/L Calcium (8.4-10.2) mg/dL Total Bilirubin (0.2-1.3) mg/dL AST (17-59) IU/L ALT (<50) IU/L Alkaline Phosphatase (38-126) U/L Total Creatine Kinase (55-170) U/L Troponin I (0.01-0.034) ng/mL Total Protein (6.3-8.2) g/dL Albumin (3.5-5.0) g/dL Globulin (1.7-4.1) g/dL Albumin/Globulin Ratio (1.0-2.8) Lipase (23-300) U/L Procalcitonin (<0.5) ng/mL Urine RBC None seen (0-5/HPF) Urine WBC 1-5/hpf (0-5/HPF) Ur Squamous Epith Cells None seen (0-5/HPF) Urine Bacteria None seen (None) Hyaline Casts 1-5/lpf (None) Urine Mucus 1+ H (Negative) Ur Culture Indicated? Cult not indicated U Opiates 300ng/mL cut Negative (Negative) Ur Oxycodone Screen Negative (Negative) Urine Methadone Screen Negative (Negative) Ur Barbiturates Screen Negative (Negative) U Tricyclic Antidepress Negative (Negative) Ur Phencyclidine Scrn Negative (Negative) Ur Amphetamines Screen Negative (Negative) U Methamphetamines Scrn Negative (Negative) Ur MDMA Scrn (Ecstasy) Negative (Negative) U Benzodiazepines Scrn Negative (Negative) Urine Cocaine Screen Negative (Negative) U Marijuana (THC) Screen Negative (Negative) Ethyl Alcohol ( - 10) mg/dL Urine Dip Bedside Urine Glucose Negative Bedside Urine Bilirubin - Negative Bedside Urine Ketone +/- 5 Urine Specific [place] 1.015 Bedside Urine Occult Blood +/- Bedside Urine pH 6.0 Bedside Urine Protein + 30 Bedside Urine Urobilinogen - Negative Bedside Urine Nitrite - Negative Bedside Urine Leukocytes - Negative Esterase Imaging Data CT scan - head: Radiologist's Impression: PROCEDURE:? CT HEAD/BRAIN WO CON ? INDICATIONS:? etoh ams ? TECHNIQUE:? Noncontrast 4.5 mm thick angled axial sections acquired from the foramen magnum to the vertex, with coronal and sagittal reformats.? For radiation dose reduction, the following was used:? automated exposure control, adjustment of mA and/or kV according to patient size.? ? COMPARISON:? [facility], CT, CT HEAD/BRAIN WO CON, 10/28/2020, 20:54.? [facility], CR, XR CHEST 1V, 03/18/2023, 12:16. ? FINDINGS:? Image quality:? Excellent.? ? CSF spaces:? Basal cisterns are patent.? No extra-axial fluid collections.? Ventricles are normal in size and shape.? ? Brain:? No midline shift.? No intracranial masses or hemorrhage.? Kamara-white matter interface is normal.? Generalized brain parenchymal atrophy is seen, which is worse than would be expected given the patient's age.? The brain atrophy is somewhat worse on the left side than on the right.? This asymmetry is similar to the 2020 examination.? ? ? Skull and face:? Calvarium and visualized facial bones are intact, without suspicious lesions.? ? Sinuses:? Visualized sinuses and mastoids are clear.? IMPRESSION:? No acute intracranial hemorrhage is seen.? ? No acute intracranial process is seen.? ? Brain atrophy is seen, which is worse than would be expected for the patient's age and is consistent with chronic alcohol use. ? ? Dictated by: Marshall Reyes M.D. on 03/18/2023 at 13:54 ? ? Approved by: Marshall Reyes M.D. on 03/18/2023 at 13:55 ? Chest x-ray: Radiologist's Impression: PROCEDURE:? XR CHEST 1V ? INDICATIONS:? chest pain ? TECHNIQUE:? One view of the chest was acquired.? ? COMPARISON:? None. ? FINDINGS:? ? Surgical changes and devices:? None.? ? Lungs and pleura:? Small right pleural effusion versus chronic pleural thick ening.? Probable right costophrenic angle region pleural calcifications.? Patchy right basilar atelectasis versus scarring. ? Mediastinum:? Mediastinal contours appear normal.? Heart size is normal.? ? Bones and chest wall:? No suspicious bony lesions.? Overlying soft tissues appear unremarkable.? ? IMPRESSION:? A process in the base of the right hemithorax may be acute or chronic.? Pleural fluid versus pleural thickening.? Mild atelectasis versus scarring.? Pleural calcifications, if present, are chronic. ? ? Dictated by: Deacon Gómez M.D. on 03/18/2023 at 13:08 ? ? ECG Data Interpretation: Sinus rhythm rate 69 IN interval 156 QRS [address] changes MDM Narrative Medical decision making narrative: Patient 57-year-old male presents today with altered mental status and hypotension. He is some slurring of speech he is found to be intoxicated with an alcohol level in the 300s. He is awake alert moving all extremities head CT is negative. We attempted to call family and daughters he lives overall the [facility]. He has a steady gait he is called a taxi cab and going back to this area. [place]. Patient pulled his IV he ambulated around was ready to be discharged however his discharge blood pressure was in the 80s. He had IV replaced lactate was drawn noted to be quite elevated at 5.8, which improved his 3.5 with IV fluids. Blood cultures are drawn and pending. Urinalysis negative. He is afebrile chest x- ray and urinalysis are negative, he has no leukocytosis. I suspect his lactate is secondary to his hypotension, no evidence of hyponatremia or other electrolyte abnormalities. He has a steady gait his talking nonsense but not suicidal or homicidal. Family is aware of him in the ED. His blood pressure significantly improved after a couple L of fluid. He is not passed out. His creatinine is stable there is no evidence of dehydration. Patient is standing up ambulatory he has had food he is drinking water at this time stable and clinically sober. Discharge Plan Departure Patient Disposition: Home Clinical Impression: Alcohol use disorder Instructions: Alcohol Use Disorder Activity Restrictions/Additional Instructions: *You have been diagnosed with alcohol intoxication *What to do: Please stay hydrated what avoid drinking excessive alcohol *Continue to take medications as directed *Follow up with your primary care provider in 2-3 days or call [phone] *Return to ER if you should have any new, worsening or concerning symptoms Stand Alone Forms: Patient Portal/API
--- NOTE | 2023-03-18 14:32 | DI.CT.S_ITS ---
PROCEDURE: CT HEAD/BRAIN WO CON INDICATIONS: etoh ams TECHNIQUE: Noncontrast 4.5 mm thick angled axial sections acquired from the foramen magnum to the vertex, with coronal and sagittal reformats. For radiation dose reduction, the following was used: automated exposure control, adjustment of mA and/or kV according to patient size. COMPARISON: [facility], CT, CT HEAD/BRAIN WO CON, 10/28/2020, 20:54. [facility], CR, XR CHEST 1V, 03/18/2023, 12:16. FINDINGS: Image quality: Excellent. CSF spaces: Basal cisterns are patent. No extra-axial fluid collections. Ventricles are normal in size and shape. Brain: No midline shift. No intracranial masses or hemorrhage. Kamara-white matter interface is normal. Generalized brain parenchymal atrophy is seen, which is worse than would be expected given the patient's age. The brain atrophy is somewhat worse on the left side than on the right. This asymmetry is similar to the 2020 examination. Skull and face: Calvarium and visualized facial bones are intact, without suspicious lesions. Sinuses: Visualized sinuses and mastoids are clear. IMPRESSION: No acute intracranial hemorrhage is seen. No acute intracranial process is seen. Brain atrophy is seen, which is worse than would be expected for the patient's age and is consistent with chronic alcohol use. Dictated by: Marshall Reyes M.D. on 03/18/2023 at 13:54 Approved by: Marshall Reyes M.D. on 03/18/2023 at 13:55
[2023-03-18 16:45] LABS: Lactate (Lactic Acid) 5.8 mmol/L (0.7-2.1)
[2023-03-18 18:03] LABS: Lactate (Lactic Acid) 3.5 mmol/L (0.7-2.1)
[2023-03-18 18:36] LABS: Reflexed Lactate in 2 Hours Y
[2023-03-18 19:16] LABS: UR Morphine/Opiate cutoff 300 Negative (Negative); Ur Creatinine Normal (Normal); Ur Specific Gravity Normal (Normal); Urine Amphetamines Negative (Negative); Urine Barbiturates Negative (Negative); Urine Benzodiazepines Negative (Negative); Urine Cocaine Negative (Negative); Urine MDMA Negative (Negative); Urine Methadone Negative (Negative); Urine Methamphetamines Negative (Negative); Urine Oxycodone Negative (Negative); Urine Phencyclidine Negative (Negative); Urine Tetrahydrocannabinol Negative (Negative); Urine Tricyclic Antidepressant Negative (Negative); Urine pH Normal (Normal)
[2023-03-18 19:19] LABS: Bacteria Urine None Seen; Hyaline Casts Urine 1-5/LPF; Mucus Urine 1+ (Negative); RBC Urine None Seen (0-5/HPF); Squamous Epithelial Cell Urine None Seen (0-5/HPF); WBC Urine 1-5/HPF (0-5/HPF)
[2023-03-18 19:20] LABS: Culture Indicated Urine Cult Not Indicated
[2023-03-18 19:46] LABS: Reflexed Lactate in 2 Hours Y
--- NOTE | 2023-03-20 19:55 | PC.NURSE ---
Notified by Garce MERCEDES that pt has been reported missing. Reviewed chart. Cooperated w/ police & discussed pt's discharge and confirmed d/c w/ nurse that discharged him.
== END 2023-03-18 19:08 | disposition home or self-care (01) ==
PROVIDERS: Emergency Provider Emergency Medicine
DX: F10.129 Alcohol abuse with intoxication, unspecified (principal); Y90.8 Blood alcohol level of 240 mg/100 ml or more; I95.9 Hypotension, unspecified; R07.9 Chest pain, unspecified
CPT/HCPCS: 36415; 70450; 71045; 80053; 80305; 80320; 81003; 81015; 82550; 83605; 83690; 84145; 84484; 85025; 87040; 93005; 96360; 96361; 99284

== ENCOUNTER 2023-07-23 22:07 | Emergency (ER) | payer OTHER, MEDICAID, SELFPAY ==
[2023-07-23] VITALS (24 sets, daily range): BP systolic 89–141; BP diastolic 50–87; PULSE 64–99; RESP 13–39; TEMP 36.2–36.3; O2SAT 92–98; BMI 26.3
--- NOTE | 2023-07-23 22:14 | DI.RAD.S_ITS ---
PROCEDURE: XR PELVIS 1-2V INDICATIONS: trauma TECHNIQUE: 1 view(s) of the pelvis acquired. COMPARISON: None. FINDINGS: Bones: No fractures or dislocations. No suspicious bony lesions. Soft tissues: Visualized bowel gas pattern is normal. No suspicious soft tissue calcifications. IMPRESSION: No visualized acute fracture or dislocation. However, if clinical concern and/or pain persist, short interval imaging followup in 7-10 days is recommended, as occult injury cannot be definitively excluded. Dictated by: Angie Penaloza M.D. on 07/23/2023 at 22:51 Approved by: Angie Penaloza M.D. on 07/23/2023 at 22:51
--- NOTE | 2023-07-23 22:14 | DI.RAD.S_ITS ---
PROCEDURE: XR CHEST 1V INDICATIONS: trauma TECHNIQUE: One view of the chest was acquired. COMPARISON: [facility], CR, XR CHEST 1V, 03/18/2023, 12:16. FINDINGS: Surgical changes and devices: None. Lungs and pleura: Unchanged blunting the right costophrenic angle. Patchy opacities are present in the right lower as well as left upper lobes. Mediastinum: Mediastinal contours appear normal. Heart size is normal. Bones and chest wall: No suspicious bony lesions. Overlying soft tissues appear unremarkable. IMPRESSION: Patchy bilateral pulmonary opacities. This may represent atelectasis or pneumonia. However, in the setting of trauma, contusion cannot be excluded. Dictated by: Angie Penaloza M.D. on 07/23/2023 at 22:28 Approved by: Angie Penaloza M.D. on 07/23/2023 at 22:30
--- NOTE | 2023-07-23 22:15 | DI.CT.S_ITS ---
PROCEDURE: CT CERVICAL SPINE WO CON INDICATIONS: Trauma TECHNIQUE: Noncontrast 3 mm thick sections acquired from the skull base to the T4 level. Sagittal and coronal reformats were then constructed. For radiation dose reduction, the following was used: automated exposure control, adjustment of mA and/or kV according to patient size. COMPARISON: [facility], CT, CT CHEST ABD PEL W CON, 07/23/2023, 22:46. FINDINGS: Image quality: Mild motion. Bones: No fractures or dislocations. Visualized superior ribs are intact. Multilevel degenerative changes are present. Soft tissues: Prevertebral soft tissues are normal in thickness. No paravertebral hematomas. No apical pneumothoraces. IMPRESSION: Degenerative changes of visualized fracture. Minimal right effusion. Dictated by: Angie Penaloza M.D. on 07/23/2023 at 23:24 Approved by: Angie Penaloza M.D. on 07/23/2023 at 23:25
--- NOTE | 2023-07-23 22:15 | DI.CT.S_ITS ---
PROCEDURE: CT HEAD/BRAIN WO CON INDICATIONS: Trauma TECHNIQUE: Noncontrast 4.5 mm thick angled axial sections acquired from the foramen magnum to the vertex, with coronal and sagittal reformats. For radiation dose reduction, the following was used: automated exposure control, adjustment of mA and/or kV according to patient size. COMPARISON: [facility], CT, CT HEAD/BRAIN WO CON, 03/18/2023, 14:47. FINDINGS: Image quality: Diagnostic. CSF spaces: Basal cisterns are patent. No extra-axial fluid collections. Ventricles are normal in size and shape. Brain: No midline shift. No intracranial masses or hemorrhage. Kamara-white matter interface is normal. Skull and face: Calvarium and visualized facial bones are intact, without suspicious lesions. Sinuses: Visualized sinuses and mastoids are clear. IMPRESSION: 1. No acute intracranial process. Dictated by: Angie Penaloza M.D. on 07/23/2023 at 23:23 Approved by: Angie Penaloza M.D. on 07/23/2023 at 23:23
--- NOTE | 2023-07-23 22:19 | PC.NURSE ---
patient states that he wants to to the EMS. He also stated that we are all going to tomorrow. He is not answering questions appropirately. is alert to self.
--- NOTE | 2023-07-23 22:23 | DI.CT.S_ITS ---
PROCEDURE: CT CHEST ABD PEL W CON INDICATIONS: trauma TECHNIQUE: After the administration of intravenous contrast, 5 mm thick sections acquired from the lung apices to the symphysis. 2.5 mm thick coronal and sagittal reformats were acquired. Additional 7 mm thick coronal maximum intensity projection (MIP) reformats acquired through the lungs. Optional 10-minute delayed imaging may be performed from the kidneys to the bladder. For radiation dose reduction, the following was used: automated exposure control, adjustment of mA and/or kV according to patient size. COMPARISON: None. FINDINGS: Image quality: Excellent. CHEST: Lungs: Minimal effusions, right greater. 2.6 cm pleural based right soft tissue density is present series 2, image 31. Mediastinum: No mediastinal hematomas. Heart size is enlarged. No pericardial effusion. Thoracic aorta and pulmonary arteries demonstrate normal size and enhancement. No mediastinal or hilar adenopathy. Esophagus is normal in caliber. No hiatal hernia. Chest wall: Sagittal images demonstrate appearance multiple rib irregularities. However, artifact is present through this region and ribs within these region on coronal and axial images demonstrate no discernible abnormality. No subcutaneous emphysema. No axillary or supraclavicular adenopathy. Thyroid gland is not visualized. ABDOMEN: Solid organs: Liver is normal in size and enhancement, without lacerations. Gallbladder demonstrates dependent stones.. Biliary system is non-dilated. Pancreas enhances normally, without transection. Spleen is normal in size and enhancement, without lacerations. No adrenal hematomas. Both kidneys enhance normally, without hydronephrosis or lacerations. Peritoneum and bowel: No free fluid or air. Unenhanced bowel loops demonstrate normal wall thickness and caliber. Colonic diverticula present. Nodes and vessels: No retroperitoneal or mesenteric adenopathy. Aorta and inferior vena cava are normal in size and enhancement. Miscellaneous: No ventral hernias. PELVIS: Genitourinary: Bladder wall thickness is normal. Miscellaneous: No inguinal hernias or adenopathy. Bones: Pelvic ring and hip joints appear intact. No vertebral compression fractures. IMPRESSION: No convincing area of osseous or visceral traumatic injury. Minimal effusions, right greater than left. Nodular pleural based soft tissue focus within the right lung as above. No priors are available for comparison. While this could represent a focus of atelectasis/airspace disease, other etiologies cannot be excluded. 6 week interval follow-up is recommended for further evaluation. Dictated by: Angie Penaloza M.D. on 07/23/2023 at 23:26 Approved by: Angie Penaloza M.D. on 07/23/2023 at 23:34
[2023-07-23] MEDS: DROPERIDOL 5 MG/2 ML VIAL 1.25 MG IV (22:30)
[2023-07-23] MEDS: KETAMINE 500 MG/5 ML INJ 75 MG IV (22:30)
[2023-07-23] MEDS: KETAMINE 500 MG/5 ML INJ 25 MG IV (22:34)
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
[2023-07-23 22:48] LABS: INR 1.3 (0.9-1.3); Prothrombin Time 14.6 SECONDS (9.4-12.5)
[2023-07-23] MEDS: DROPERIDOL 5 MG/2 ML VIAL 2.5 MG IV (22:50)
[2023-07-23 22:51] LABS: Basophils Absolute Auto 100 /uL (0-100); Basophils Percent Auto 0.8 % (0-2); Eosinophils Absolute Auto 0 /uL (0-450); Eosinophils Percent Auto 0.6 % (2-4); Hematocrit 42.8 % (41-53); Hemoglobin 14.8 g/dL (13.5-17.5); Lymphocytes Absolute Auto 1600 /uL (1100-4500); Lymphocytes Percent Auto 23.9 % (25-40); Mean Corpuscular HGB Conc 34.7 % (30-36); Mean Corpuscular Hemoglobin 32.9 PG (26-34); Mean Corpuscular Volume 94.8 fL (80-100); Monocytes Absolute Auto 700 /uL (0-900); Monocytes Percent Auto 10.6 % (3-14); Neutrophils Absolute Auto 4200 /uL (1500-7000); Red Blood Cell Count 4.52 X10^6/uL (4.5-5.9); Red Cell Distribution Width 15.8 % (11.6-14.8); White Blood Cell Count 6.6 X10^3/uL (4.5-11.0)
[2023-07-23 22:53] LABS: Alanine Aminotransferase 40 IU/L (<50); Albumin 3.8 g/dL (3.5-5.0); Albumin Globulin Ratio 1.1 (1.0-2.8); Alkaline Phosphatase 88 U/L (38-126); BUN Creatinine Ratio 18.6 (6-22); Blood Urea Nitrogen 16 mg/dL (9-20); Calcium 8.8 mg/dL (8.4-10.2); Carbon Dioxide 23 mmol/L (22-32); Chloride 109 mmol/L (98-107); Estimated Glomerular Filt Rate > 60 mL/min (>60); Globulin 3.5 g/dL (1.7-4.1); Glucose 90 mg/dL (70-100); HEMOLYSIS 34 (0-50); Lactate (Lactic Acid) 2.4 mmol/L (0.7-2.1); Lipase 144 U/L (23-300); Neutrophils Percent Auto 64.1 % (50-75); Potassium 4.4 mmol/L (3.4-5.1); Sodium 142 mmol/L (137-145); Total Protein 7.3 g/dL (6.3-8.2)
[2023-07-23 22:56] LABS: Add Manual Diff / Slide Review SLIDE REVIEW
[2023-07-23] MEDS: MIDAZOLAM 2 MG/2 ML VIAL IV (23:05)
[2023-07-23 23:09] LABS: Aspartate Aminotransferase 50 IU/L (17-59)
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
[2023-07-23 23:30] LABS: Platelet Estimate Adequate on smear; RBC Morphology Normal Morphology
[2023-07-23] MEDS: LACTATED RINGERS 1,000 ML 1000 ML IV (23:46)
[2023-07-24] VITALS (75 sets, daily range): BP systolic 94–165; BP diastolic 50–88; PULSE 59–91; RESP 12–32; TEMP 36.4; O2SAT 89–98
[2023-07-24 00:05] LABS: Reflexed Lactate in 2 Hours Y
[2023-07-24 00:13] LABS: Ethanol (ETOH) 268 mg/dL
--- NOTE | 2023-07-24 00:39 | PC.NURSE ---
This nurse spoke to patient's medical POA- his daughter Sol Fuentes - she reports the patient was just released from [facility] for ETOH and SI. Patient was supposed to got to court and then see his daughter. Patient was then brought in here by EMS and daughter is concerned this situation is another suicide attempt. Dr. Anthony aware of patient being discharged from previous medical center. Sol requests nursing call her with updates.
[2023-07-24 01:03] LABS: UR Morphine/Opiate cutoff 300 Negative (Negative); Ur Creatinine Normal (Normal); Ur Specific Gravity Normal (Normal); Urine Amphetamines Negative (Negative); Urine Barbiturates Positive (Negative); Urine Benzodiazepines Negative (Negative); Urine Cocaine Negative (Negative); Urine MDMA Negative (Negative); Urine Methadone Negative (Negative); Urine Methamphetamines Negative (Negative); Urine Oxycodone Negative (Negative); Urine Phencyclidine Negative (Negative); Urine Tetrahydrocannabinol Negative (Negative); Urine Tricyclic Antidepressant Negative (Negative); Urine pH Normal (Normal)
[2023-07-24 01:57] LABS: Lactate 2HR (Lactic Acid Rflx) 3.6 mmol/L (0.7-2.1)
[2023-07-24] MEDS: SODIUM CHLORIDE 0.9% 1,000 ML 1000 ML IV (04:35)
[2023-07-24 06:15] LABS: Ethanol (ETOH) 153 mg/dL; Lactate (Lactic Acid) 2.4 mmol/L (0.7-2.1)
[2023-07-24] MEDS: levETIRAcetam 1,000 MG in SODIUM CHLORIDE 0.9% 100 ML 440 MG IV (07:07)
[2023-07-24 07:39] LABS: Reflexed Lactate in 2 Hours Y
--- NOTE | 2023-07-24 07:42 | PC.NURSE ---
Addendum entered by Priti Cuellar R.N. 07/24/23 07:57: Pt has also been weaned from O2. 96% on RA. Original Note: Pt awake and alert, drowsy. Restraints discontinued at this time. Pt moving all 4 extremities. Pt moved from rm 2 to rm 7 within line of sight of RN station. Tanvi, Lab in room to redraw lactate. Dr Ribera made aware. Advised pt is denying SI/HI. States I want to move past all of that. i dont know what happened last night but im fine now Daughter is well aware that pt is here. Pt awaiting SOCIAL MEDIA MANAGER consult. Breakfast tray ordered. On 1:1 observation with CERTIFIED OPHTHALMIC ASSISTANT at this time.
[2023-07-24] MEDS: THIAMINE 100 MG in SODIUM CHLORIDE 0.9% 100 ML 404 MG IV (08:07)
[2023-07-24] MEDS: PHENobarbital 65 MG/ML VIAL 260 MG IV (08:12)
[2023-07-24 08:21] LABS: Lactate 2HR (Lactic Acid Rflx) 2.4 mmol/L (0.7-2.1)
--- NOTE | 2023-07-24 10:03 | PC.NURSE ---
This RN asked Dr. Ribera if she wanted a 5th lactate an order would need to be placed. Provider stated no need for another lactate.
--- NOTE | 2023-07-24 11:25 | PC.NURSE ---
jam kilgorew speaking with pt
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
[2023-07-24 12:56] LABS: COVID19 -Nasal RAPID Negative (Negative)
--- NOTE | 2023-07-24 15:59 | PC.NURSE ---
Pt has been sleeping most of the afternoon, wakes to make needs known, wakes for care and assessments then goes directly back to sleep. 1:1 observation continues, no remarks of self harm made since this RN assumed care.
--- NOTE | 2023-07-24 16:54 | PC.NURSE ---
Selam BARRIGA does not feel that pt needs sitter any more as he is not suicidal. Dr Ribera aware and agrees that we don't need a sitter any longer. NITHYA is still working on getting pt a detox bed.
--- NOTE | 2023-07-24 17:10 | CM.SWNOTE ---
ED RETAIL KEY HOLDER Note RETAIL KEY HOLDER calls [facility] intake, it is reported that they have beds and can review patient. RETAIL KEY HOLDER faxes clinicals to review. RETAIL KEY HOLDER calls back at 1700 and it is reported they are still reviewing patient. RETAIL KEY HOLDER calls [facility], it is reported they have beds and can review patient, RETAIL KEY HOLDER faxes clinicals for review. It is reported that patient is declined due to patient's need for oxygen last night and patient needs to demonstrate he is off of oxygen for 48 hours, they state concern that patient does not meet criteria for detox because he endorses he only drinks a few beers a day. RETAIL KEY HOLDER calls [facility], it is reported they have beds. Patient engages in intake screening. In phone call patient denies addition to alcohol and presents with denial to concern for his alcoholism. Patient states I drink to ease pain because of my bad childhood. RETAIL KEY HOLDER faxes clinicals for review. RETAIL KEY HOLDER calls back [facility] at 1705 and it is reported they are still reviewing patient. RETAIL KEY HOLDER calls [facility] and it is reported that they do not have beds. Intake endorses that when patient was at [facility] on 07/17/23 they reviewed patient and it was documented by their psychiatrist that patient requires a higher level of care than their psych unit can provide due to patient's TBI and Warnicke's. It is reported that [facility] and receives [facility]. Patient's mental health case manager is Christine (Ph. # [phone]). Intake suggested this RETAIL KEY HOLDER call [facility] for medical detox. RETAIL KEY HOLDER calls [facility] for medical detox referral (Ph. # [phone]) they review patient and later call back to state that there are no available beds. Patient gives consent to contact his daughter regarding patient's disposition. Plan: RETAIL KEY HOLDER to continue to seek detox bed for patient, if unable to identify detox bed for patient then patient will likely need to d/c to family or community. Selam Springer, NURSE INFORMATICS EDUCATOR
--- NOTE | 2023-07-24 20:39 | PC.NURSE ---
Addendum entered by Arelis Ashraf CNA 07/24/23 21:53: [facility] does not have a sceener until 0700 07/25 Original Note: Received a call from [facility], stating that they could not admit pt due to extensive mental health issues.
[2023-07-25] VITALS (22 sets, daily range): BP systolic 116–164; BP diastolic 56–76; PULSE 52–75; RESP 12–32; TEMP 36.6; O2SAT 91–97
--- NOTE | 2023-07-25 03:39 | PC.NURSE ---
PT ambulated to bathroom. denies any pain. denies any suicidal thoughts at this time.
--- NOTE | 2023-07-25 09:39 | PC.NURSE ---
0845: Called [facility]. RN for intake will call back. 0930: ED boarding NIO's placed. Pt resting in bed. CIWA 2. Sleeping intermittently. OOB to BR. Additional call placed to [facility] by CINTHIA Knight. Awaiting update from [facility]. Pt denies SI/HI.
--- NOTE | 2023-07-25 11:15 | CM.SWNOTE ---
Addendum entered by NITHYA Mantilla 07/25/23 11:46: MICROSYSTEMS ENGINEER spoke with James at Intake for [facility]. MICROSYSTEMS ENGINEER answered questions to best of ability. James at [facility] agreed to accept patient. Nurse report number [phone]. MICROSYSTEMS ENGINEER updated ED RN with acceptance and RN report number. MICROSYSTEMS ENGINEER will continue to assist as needed. SL Original Note: Printing Press Machine Operator Note MICROSYSTEMS ENGINEER received call from RN in ED inquiring about assistance in placement for pt. MICROSYSTEMS ENGINEER reviewed EMR. Per RN note, [facility] denied pt. Currently, only facility with referral pending review is [facility]. MICROSYSTEMS ENGINEER spoke with James at [facility] Intake (p [phone]), MICROSYSTEMS ENGINEER updated James on pt's vitals/ADLs/current status. James agreed to finish reviewing and call back within 30 mins to update this MICROSYSTEMS ENGINEER. MICROSYSTEMS ENGINEER updated ED RN on status. MICROSYSTEMS ENGINEER will continue to assist as able. NITHYA Mantilla
--- NOTE | 2023-07-25 12:02 | PC.NURSE ---
Pt was accepted at [facility]. report given to RN on [facility]. BLS transport being set up for transfer. Pt aware and agreeable.
--- NOTE | 2023-07-25 12:20 | PC.NURSE ---
Pt set up to shower. given towels and disposable clothes and hygiene products. ETA for transport [id number]
== END 2023-07-25 13:32 ==
PROVIDERS: Emergency Medicine; Emergency Provider Emergency Medicine
DX: T14.91XA Suicide attempt, initial encounter (principal); S29.9XXA Unspecified injury of thorax, initial encounter; S39.93XA Unspecified injury of pelvis, initial encounter; S09.90XA Unspecified injury of head, initial encounter; R79.89 Other specified abnormal findings of blood chemistry; M25.48 Effusion, other site; F10.120 Alcohol abuse with intoxication, uncomplicated; Y90.8 Blood alcohol level of 240 mg/100 ml or more; Z20.822 Contact with and (suspected) exposure to COVID-19
CPT/HCPCS: 36415; 51701; 70450; 71045; 71260; 72125; 72170; 74177; 80053; 80305; 80320; 82962; 83605; 83690; 85025; 85610; 86850; 86900; 86901; 87635; 93005; 93010; 96361; 96365; 96375; 99285; 99291; C9803; G0390; J1790; J1953; J2250; J2560; Q9967